=== PATIENT | male | born 1955 | race Caucasian/White ===

== ENCOUNTER 2017-08-05 13:31 | Inpatient (IN) | payer BC ==
[~2017-08-05] VITALS: Ht 182.9 cm; Wt 83.9 kg
[2017-08-05] VITALS (8 sets, daily range): BP systolic 91–137; BP diastolic 54–67
--- NOTE | 2017-08-05 13:45 | NUR ---
UNABLE TO DO EKG AT THIS TIME- PT RESTELESS. AWARE.
[2017-08-05] MEDS ORDERED: ONDANSETRON HCL/PF 4 MG/2 ML VIAL ONE (13:48)
[2017-08-05] MEDS ORDERED: HYDROMORPHONE INJ 2 MG/ML DISP.SYRIN ONE (13:49)
[2017-08-05] MEDS ORDERED: ALBUTEROL FS 2.5 MG/3 ML VIAL.NEB ONE (13:52)
[2017-08-05] MEDS ORDERED: IPRATROPIUM NEB FS 0.5 MG/2.5 ML AMPUL.NEB ONE (13:52)
--- NOTE | 2017-08-05 13:52 | NUR ---
CALLED RT FOR BREATHING TX.
[2017-08-05 13:54] LABS: BASOPHILS % (AUTO) 0.1 % (0.0-2.0); HEMATOCRIT 43 % (39-51); HEMOGLOBIN 14.3 g/dL (13.5-17.5); LYMPHOCYTES # (AUTO) 0.9 /CMM (0.8-4.8); LYMPHOCYTES % (AUTO) 3.6 % (20.0-44.0); MEAN CORPUSCULAR HGB CONC 33 g/dl (31.0-36.0); MEAN CORPUSCULAR VOLUME 85 fL (80-96); MONOCYTES # (AUTO) 0.6 /CMM (0.1-1.30); MONOCYTES % (AUTO) 2.6 % (2.0-12.0); NEUTROPHILS # (AUTO) 23.1 /CMM (1.8-8.9); NEUTROPHILS % (AUTO) 93.7 % (43.0-81.0); PLATELET COUNT (AUTO) 381 /CMM (150-450); RDW COEFFICIENT OF VARIATION 16.3 (11.5-15.0); WHITE BLOOD COUNT (AUTO) 24.6 K/uL (4.3-11.0)
[2017-08-05] MEDS ORDERED: HYDROMORPHONE INJ 0.5 MG/0.5 ML SYRINGE IV ONE (14:00)
[2017-08-05] MEDS ORDERED: IPRATROPIUM NEB FS 0.5 MG/2.5 ML AMPUL.NEB NEB ONE (14:00)
[2017-08-05] MEDS ORDERED: ALBUTEROL FS 2.5 MG/3 ML VIAL.NEB NEB ONE (14:00)
[2017-08-05] MEDS ORDERED: ONDANSETRON HCL/PF 4 MG/2 ML VIAL IV ONE (14:00)
[2017-08-05 14:13] LABS: CARBON DIOXIDE 32 mmol/L (21-32); CHLORIDE 96 mmol/L (98-107); CREATININE 0.8 mg/dL (0.6-1.3); GLUCOSE 127 mg/dL (74-106); POTASSIUM 5.3 mmol/L (3.5-5.1); SODIUM SERUM 133 mmol/L (136-145); UREA NITROGEN, BLOOD 23 mg/dL (7-18)
[2017-08-05 14:18] LABS: ALANINE AMINOTRANSFERASE 35 U/L (12-78); ALBUMIN 3.5 g/dL (3.4-5.0); ALKALINE PHOSPHATASE 113 U/L (46-116); ASPARTATE AMINOTRANSFERASE 24 U/L (15-37); BILIRUBIN,DIRECT 0.1 mg/dL (0.0-0.2); BILIRUBIN,TOTAL 0.3 mg/dL (0.2-1.0); TOTAL PROTEIN, SERUM 8.4 g/dL (6.4-8.2)
[2017-08-05 14:20] LABS: TROPONIN I < 0.017 ng/mL (0.00-0.056)
[2017-08-05] MEDS ORDERED: IV NS 0.9% 1,000 ML BAG IV ONE (14:30)
[2017-08-05] MEDS ORDERED: VANCOMYCIN 1 GM in IV D5W 250 ML IV ONE (14:30)
[2017-08-05] MEDS ORDERED: PIPERACILLIN /TAZOBACTAM 3.375 G in IV D5W 50 ML IV ONE (14:30)
[2017-08-05 14:46] LABS: LYMPHOCYTES % (MANUAL) 3 % (16-48); MONOCYTES % (MANUAL) 3 % (0-11.0); NEUTROPHILS % (MANUAL) 94 (42-76)
[2017-08-05] MEDS ORDERED: CHOL50004 GT (15:16)
[2017-08-05] MEDS ORDERED: PANT40TA2 GT (15:16)
[2017-08-05] MEDS ORDERED: METO25TA6 GT (15:16)
[2017-08-05] MEDS ORDERED: TRAZ-182 GT (15:16)
[2017-08-05] MEDS ORDERED: EMPA25TA GT (15:16)
[2017-08-05] MEDS ORDERED: INSU100I30 SQ (15:16)
[2017-08-05] MEDS ORDERED: ASCO-340 GT (15:16)
[2017-08-05] MEDS ORDERED: BACL20TA GT (15:16)
[2017-08-05] MEDS ORDERED: PREG150C GT (15:16)
[2017-08-05] MEDS ORDERED: MELA5TAB GT (15:16)
[2017-08-05] MEDS ORDERED: LACT1CAP57 GT (15:16)
[2017-08-05] MEDS ORDERED: METF-442 GT (15:16)
[2017-08-05] MEDS ORDERED: DULO60CA45 GT (15:16)
[2017-08-05 15:20] LABS: APPEARANCE,URINE Cloudy (CLEAR); BILIRUBIN,URINE Negative (NEGATIVE); BLOOD, URINE Moderate Ery/uL (NEGATIVE); COLOR,URINE Yellow (YELLOW); KETONES,URINE 15 (NEGATIVE); LEUKOCYTE ESTERASE ,URINE Small (NEGATIVE); NITRITE, URINE Positive (NEGATIVE); PH,URINE 5.5 (5.0-8.0); PROTEIN,URINE 100 mg/dl (NEGATIVE); UGLUCOSE Negative (NEGATIVE); UROBILINOGEN,URINE 0.2 EU/dL (0.2)
--- NOTE | 2017-08-05 15:23 | NUR ---
URINE COLLECTED FROM RENNER CATHETER AND SENT TO LAB
[2017-08-05] MEDS ORDERED: PIPERACILLIN /TAZOBACTAM 3.375 G VIAL IV ONE (15:40)
--- NOTE | 2017-08-05 15:44 | NUR ---
PAGED EPIC FOR PANEL
--- NOTE | 2017-08-05 15:47 | NUR ---
CALLED NURSE SUP FOR ICU BED
--- NOTE | 2017-08-05 15:57 | NUR ---
REPORT GIVEN TO PARIS ANDREWS FOR ICU 256.
--- NOTE | 2017-08-05 16:00 | NUR ---
LINECASTING MACHINE KEYBOARD OPERATOR RECEIVED PATIENT FROM ER 0N 3 LITERS NASAL CANNULA SATURATING 96% ALRET ORIENTED X 3 PARAPLEGIC NORMAL SINUS RHYTHM BLOOD PRESSURE AROUNd 100 SBP MONITORED CLOSELY YOGESHI GIBSON IN PLACED
[2017-08-05 16:12] LABS: BACTERIA,URINE Moderate /HPF (None Seen); SQUAMOUS EPITHELIAL CELL,UR Rare /HPF (None Seen); WBC,URINE 21-50 /HPF (0-3)
[2017-08-05] MEDS ORDERED: HYDROMORPHONE 1 MG/1 ML DISP.SYRIN IV PRN (18:00)
[2017-08-05] MEDS ORDERED: HYDROCODONE/APAP 5/325MG 1 EACH TABLET PO PRN ×2 (18:00→19:00)
[2017-08-05] MEDS: IV NS 0.9% 1,000 ML IV PRN (18:53)
[2017-08-05] MEDS ORDERED: FEE PK DOSING 1 MIN EA MC ONE (18:53)
[2017-08-05] MEDS ORDERED: MAG HYDROX/AL HYDROX/SIMETH 30 ML UDC PO PRN (19:00)
[2017-08-05] MEDS ORDERED: ALBUTEROL FS 2.5 MG/0.5 ML VIAL.NEB NEB PRN (19:00)
[2017-08-05] MEDS ORDERED: ACETAMINOPHEN 325 MG TABLET PO PRN (19:00)
[2017-08-05] MEDS ORDERED: IPRATROPIUM NEB FS 0.5 MG/2.5 ML AMPUL.NEB NEB PRN (19:00)
[2017-08-05] MEDS ORDERED: Z GUARD REMEDY 2 OZ OINT TP PRN (19:00)
[2017-08-05] MEDS ORDERED: Medication Not On Formulary EA (Melatonin 5 MG) PO SCH (19:00)
[2017-08-05] MEDS ORDERED: MAGNESIUM HYDROXIDE 30 ML UDC PO PRN (19:00)
[2017-08-05] MEDS ORDERED: ONDANSETRON HCL/PF 4 MG/2 ML VIAL IVP PRN (19:00)
[2017-08-05] MEDS: BACLOFEN (10 MG) 10 MG TABLET PO SCH (20:53)
[2017-08-05] MEDS: ENOXAPARIN SODIUM 40 MG/0.4 ML DISP.SYRIN SQ SCH (20:54)
[2017-08-05] MEDS ORDERED: PREGABALIN 25 MG CAPSULE PO SCH (21:00)
[2017-08-05] MEDS: TRAZODONE 50 MG TABLET PO SCH (21:14)
[2017-08-05] MEDS: PIPERACILLIN /TAZOBACTAM 3.375 G in IV D5W 50 ML IV SCH (23:36)
[2017-08-06] VITALS (18 sets, daily range): BP systolic 62–138; BP diastolic 24–74
[2017-08-06] MEDS: VANCOMYCIN 1 GM in IV NS 0.9% 250 ML IV SCH ×2 (03:35→15:16)
[2017-08-06 05:25] LABS: BASOPHILS % (AUTO) 0.3 % (0.0-2.0); EOSINOPHILS % (AUTO) 0.3 % (0.0-6.0); HEMATOCRIT 36 % (39-51); LYMPHOCYTES % (AUTO) 16.8 % (20.0-44.0); MEAN CORPUSCULAR HGB CONC 33 g/dl (31.0-36.0); MEAN CORPUSCULAR VOLUME 86 fL (80-96); MONOCYTES # (AUTO) 0.5 /CMM (0.1-1.30); MONOCYTES % (AUTO) 4.4 % (2.0-12.0); NEUTROPHILS # (AUTO) 9.4 /CMM (1.8-8.9); NEUTROPHILS % (AUTO) 78.2 % (43.0-81.0); PLATELET COUNT (AUTO) 219 /CMM (150-450); RDW COEFFICIENT OF VARIATION 16.3 (11.5-15.0); RED BLOOD CELL COUNT(AUTO) 4.22 MIL/uL (4.5-6.0)
[2017-08-06] MEDS: HYDROCODONE/APAP 10/325MG 1 EA TABLET PO PRN ×4 (05:37→22:43)
[2017-08-06 05:43] LABS: CALCIUM, SERUM 8.9 mg/dL (8.5-10.1); CREATININE 0.9 mg/dL (0.6-1.3); MAGNESIUM 1.7 mg/dL (1.8-2.4); PHOSPHORUS 3.8 mg/dL (2.5-4.9); POTASSIUM 4.8 mmol/L (3.5-5.1)
[2017-08-06] MEDS: PIPERACILLIN /TAZOBACTAM 3.375 G in IV D5W 50 ML IV SCH ×4 (05:43→23:45)
--- NOTE | 2017-08-06 06:23 | NUR ---
RN NOTE PT REMAINS IN NO ACUTE DISTRESS IN BED. PT WAS C/O PAIN TO COCCYX AND PAIN MANAGEMENT INITIATED. PT TOLERATED NC @ 2LPM WITH O2 SAT @ 100%. ALL NEEDS MET, ALL ORDERS CARRIED OUT. WILL ENDORSE CARE TO AM RN FOR CONTINUITY OF CARE.
[2017-08-06] MEDS ORDERED: PANTOPRAZOLE 40 MG TABLET.DR PO SCH (07:30)
--- NOTE | 2017-08-06 07:30 | NUR ---
ALIGNER TYPEWRITER RECEIVED PATIENT AWAKE ON 3 LITERS NASAL CANNULA SATURATING 98% AFEBRILE ALERT ORIENTED X 3, PARAPLEGIC MAINTAINED ON NPO MONITORED CLOSELY RENNER CATHETER DRAINAGE TO YELLOWISH CLOUDY URINE ADEQUATE IN AMOUNT
[2017-08-06] MEDS: IV NS 0.9% 1,000 ML IV PRN ×2 (07:51→20:20)
[2017-08-06] MEDS: BACLOFEN (10 MG) 10 MG TABLET PO SCH ×3 (08:21→16:29)
[2017-08-06] MEDS: PANTOPRAZOLE 40 MG VIAL IV SCH (08:21)
[2017-08-06] MEDS: LACTOBACILLUS RHAMNOSUS GG 1 EACH CAP.SPRINK PO SCH ×2 (08:21→16:29)
[2017-08-06] MEDS: CHOLECALCIFEROL 1,000 UNIT TABLET (VIT D3) PO SCH (08:22)
[2017-08-06] MEDS: METOPROLOL TARTRATE 25 MG TABLET PO SCH ×2 (08:22→16:30)
[2017-08-06] MEDS: ASCORBIC ACID 500 MG TABLET PO SCH (08:22)
[2017-08-06] MEDS: DULOXETINE HCL 30 MG CAPSULE.DR PO SCH (08:22)
--- NOTE | 2017-08-06 08:49 | NUR ---
WOUND CARE CONSULT: PT PRESENTS WITH MULTIPLE SKIN ISSUES INCLUDING SACRAL UNSTAGEABLE ULCER, RASH TO BUTTOCKS AND UNDER LEFT ARM, RT ANKLE ULCER AND DRY ESCHARS TO LEFT TOES, PRESENT ON ADMISSION. PT ON FIRST STEP MATTRESS. G TUBE NOTED TO BE CLAMPED AT THIS TIME. CURRENT LILY SCORE IS 8. ALL SKIN PROTECTION AND WOUND CARE RECOMMENDATIONS DISCUSSED WITH NURSING STAFF. RECOMMEND SURGICAL CONSULT. WILL SEE PRN. DUARTE IN AGREEMENT WITH PLAN OF CARE. Addendum: 08/06/17 at 0851 by JUSTINE CHILDERS WNDNU Amended: Links added.
[2017-08-06] MEDS ORDERED: HYDROGEL DRESSING 90 GM TUBE TP PRN (09:00)
[2017-08-06] MEDS: Magnesium 1GM/D5W 100ML PREMIX 100 ML IV SCH ×2 (10:09→11:15)
[2017-08-06] MEDS: CLOTRIMAZOLE/BETAMETASONE DIPROPIONATE 15 GM TUBE TP SCH ×2 (10:10→17:23)
--- NOTE | 2017-08-06 10:50 | NUR ---
PHOTOENGRAVING MACHINE OPERATOR/TENDER SEEN BY NIMCO, BULK SEALER ABLE TO CONTACT BROTHER TO FOLLOW UP WITH THE PATIENT'S STATUS AT HOME
--- NOTE | 2017-08-06 10:52 | NUR ---
Social service consult requested by Wound RN Adeline for unstageable wounds that pt. has. Pt. is a 62 year old male who was admitted to [facility] ICU for sepsis and Hypotension. KYMBERLY contacted pt's brother Jose Grider to inquire about pt's living situation. Per Jose, pt. was discharged form [facility] in [place] 10 days ago. Pt. was discharge home from the facility. Pt. currently has a 24/hr caregiver and a home health agency. Pt. is bedridden. Pt. does have a wheelchair at home. Per Jose, pt. has restless leg syndrome. Jose informed SW he will be visiting his brother in an hour at [facility]. KYMBERLY informed Jose to speak with major case detective regarding discharge plan and possible placement.
--- NOTE | 2017-08-06 13:50 | NUR ---
FIELD SALES EXECUTIVE NOTE RECEIVED REPORT FROM [facility] ICU. AWAITING PT ARRIVAL.
--- NOTE | 2017-08-06 14:06 | NUR ---
CARPET WEAVER MONITORED CLOSELY GIVEN REPORT TO GIANFRANCO RN WILL BE WHEELING PATIENT TO 1ST FLOOR ENDORSED
[2017-08-06] MEDS: HYDROGEL DRESSING 90 GM TUBE TP SCH (15:16)
[2017-08-06] MEDS: TRAZODONE 50 MG TABLET PO SCH (21:03)
[2017-08-06] MEDS: ENOXAPARIN SODIUM 40 MG/0.4 ML DISP.SYRIN SQ SCH (21:08)
[2017-08-06] MEDS: ZOLPIDEM TARTRATE 5 MG TABLET PO PRN (22:43)
--- NOTE | 2017-08-06 23:14 | NUR ---
NEEDLE PUNCH MACHINE OPERATOR HELPER NOTES GAVE PATIENT AND REPORT TO JULIANA FUNG
[2017-08-07] VITALS: BP 98/64
[2017-08-07] MEDS: VANCOMYCIN 1 GM in IV NS 0.9% 250 ML IV SCH ×2 (03:00→15:14)
--- NOTE | 2017-08-07 03:08 | NUR ---
GASOLINE ENGINE INSPECTOR NOTES RECEIVED VANCO TROUGH RESULT OF 17, VANCOMYCIN 1G ADMINISTERED ORDERED. PT IN BED RESTING COMFORTABLY, NO S/SX OF PAIN OR DISCOMFORT NOTED. WILL CONTINUE TO MONITOR ACCORDINGLY.
[2017-08-07 04:00] VITALS: BP 114/66
[2017-08-07] MEDS: PIPERACILLIN /TAZOBACTAM 3.375 G in IV D5W 50 ML IV SCH ×3 (06:01→17:01)
[2017-08-07] MEDS: IV NS 0.9% 1,000 ML IV PRN (06:10)
[2017-08-07] MEDS: HYDROCODONE/APAP 10/325MG 1 EA TABLET PO PRN ×3 (06:19→16:59)
[2017-08-07 07:09] VITALS: BP 114/66
--- NOTE | 2017-08-07 07:09 | NUR ---
CASING CREW PUSHER CLOSING NOTES PT IN BED AWAKE, ALERT, VERBALLY RESPONSIVE, ON O2 VIS N/C AT 2L/MIN. NO SOB NOTED. CALL LIGHT WITHIN REACH KEPT CLEAN AND COMFORTABLE, ATTENDED ALL NEEDS. WILL ENDORSE TO DAY SHIFT FOR CONTINUITY OF CARE
[2017-08-07 07:32] LABS: CREATININE 0.8 mg/dL (0.6-1.3); MAGNESIUM 2.1 mg/dL (1.8-2.4); PHOSPHORUS 3.8 mg/dL (2.5-4.9); POTASSIUM 4.7 mmol/L (3.5-5.1)
[2017-08-07 07:34] LABS: BASOPHILS % (AUTO) 0.4 % (0.0-2.0); EOSINOPHILS % (AUTO) 0.5 % (0.0-6.0); HEMATOCRIT 39 % (39-51); HEMOGLOBIN 12.8 g/dL (13.5-17.5); LYMPHOCYTES # (AUTO) 1.7 /CMM (0.8-4.8); LYMPHOCYTES % (AUTO) 13.8 % (20.0-44.0); MEAN CORPUSCULAR HGB CONC 33 g/dl (31.0-36.0); MEAN CORPUSCULAR VOLUME 86 fL (80-96); MONOCYTES # (AUTO) 0.7 /CMM (0.1-1.30); MONOCYTES % (AUTO) 5.7 % (2.0-12.0); NEUTROPHILS # (AUTO) 9.7 /CMM (1.8-8.9); NEUTROPHILS % (AUTO) 79.6 % (43.0-81.0); PLATELET COUNT (AUTO) 260 /CMM (150-450); RDW COEFFICIENT OF VARIATION 15.3 (11.5-15.0); RED BLOOD CELL COUNT(AUTO) 4.56 MIL/uL (4.5-6.0); WHITE BLOOD COUNT (AUTO) 12.2 K/uL (4.3-11.0)
[2017-08-07 08:00] VITALS: BP 136/71
[2017-08-07] MEDS: PANTOPRAZOLE 40 MG VIAL IV SCH (08:42)
[2017-08-07] MEDS: ASCORBIC ACID 500 MG TABLET PO SCH (08:42)
[2017-08-07] MEDS: DULOXETINE HCL 30 MG CAPSULE.DR PO SCH (08:42)
[2017-08-07] MEDS: CHOLECALCIFEROL 1,000 UNIT TABLET (VIT D3) PO SCH (08:43)
[2017-08-07] MEDS: LACTOBACILLUS RHAMNOSUS GG 1 EACH CAP.SPRINK PO SCH ×2 (08:43→16:59)
[2017-08-07] MEDS: BACLOFEN (10 MG) 10 MG TABLET PO SCH ×3 (08:43→16:59)
[2017-08-07] MEDS: METOPROLOL TARTRATE 25 MG TABLET PO SCH ×2 (08:43→17:00)
[2017-08-07] MEDS: HYDROGEL DRESSING 90 GM TUBE TP SCH (08:44)
[2017-08-07] MEDS: CLOTRIMAZOLE/BETAMETASONE DIPROPIONATE 15 GM TUBE TP SCH ×2 (08:44→17:00)
--- NOTE | 2017-08-07 11:10 | NUR ---
SPACE AND STORAGE CLERK NOTE DR.M ZHANG @ BEDSIDE ORDERED TO START TUBE FEEDING AND CHANGE ORDER OF NORCO 10/325MG PO TO 4H PRN. PT C/O OF A LOT OF PAIN 02/05.
[2017-08-07] MEDS: GLYTROL 1,000 ML BAG GT PRN (13:31)
[2017-08-07 16:00] VITALS: BP 126/66
[2017-08-07] MEDS: PROSOURCE / PROSTAT (PYXIS) 30 ML UDC GT SCH (16:59)
[2017-08-07 20:00] VITALS: BP_SYST 113; BP_SYST 128; BP_DIAS 63; BP_DIAS 65
[2017-08-07] MEDS: ENOXAPARIN SODIUM 40 MG/0.4 ML DISP.SYRIN SQ SCH (20:54)
[2017-08-07] MEDS: TRAZODONE 50 MG TABLET PO SCH (21:04)
[2017-08-07] MEDS: ZOLPIDEM TARTRATE 5 MG TABLET PO PRN (21:04)
[2017-08-08] MEDS: PIPERACILLIN /TAZOBACTAM 3.375 G in IV D5W 50 ML IV SCH ×3 (00:27→11:25)
[2017-08-08] MEDS: VANCOMYCIN 1 GM in IV NS 0.9% 250 ML IV SCH ×2 (03:16→15:00)
[2017-08-08 04:00] VITALS: BP 138/69
[2017-08-08] MEDS: GLYTROL 1,000 ML BAG GT PRN ×2 (06:26→18:11)
--- NOTE | 2017-08-08 06:55 | NUR ---
MS RN NOTES AWAKE & RESPONSIVE. NOT IN ANY DISTRESS. NO SOB NOTED. DENIES ANY PAIN OR DISCOMFORT AT THIS TIME. WITH GTF & IVF INFUSING WELL. AM CARE DONE. MONITORED ACCORDINGLY. CALL LIGHT WITHIN REACH. BED IN LOWEST POSITION. SR UP X 3 WITH BED ALARM ON FOR SAFETY. WILL ENDORSE TO NEXT SHIFT.
[2017-08-08 08:00] VITALS: BP 137/71
--- NOTE | 2017-08-08 08:00 | NUR ---
M/S RN - Assessment Received care of pt in bed, awake, A/O x 2, confused and disoriented at times, reality orientation given. Patient denies pain, no evidence of resp distress noted. Saline lock on the RAC and LFA are both patent, intact, with no complications. Skin assessment done. Will do wound treatment as ordered. Patient turned and repositioned q2h and PRN if condition permits. KCI mattress in place for skin management. GTF Glytrol at 50 ml/hr tolerated well with no residual noted. Aspiration precautions observed at all times. Isolation precautions maintained for MRSA wound. All needs attended and met. Brother Jose at bedside updated on treatment plan. Will continue with current medical management. Addendum: 08/08/17 at 1110 by RICHAR BECERRIL RN Correction/typo error on GTF rate: Patient currently on 80 ml/hr.
[2017-08-08] MEDS: PANTOPRAZOLE 40 MG VIAL IV SCH (08:29)
[2017-08-08] MEDS: LACTOBACILLUS RHAMNOSUS GG 1 EACH CAP.SPRINK PO SCH ×2 (08:30→16:28)
[2017-08-08] MEDS: ASCORBIC ACID 500 MG TABLET PO SCH (08:30)
[2017-08-08] MEDS: BACLOFEN (10 MG) 10 MG TABLET PO SCH ×3 (08:30→16:28)
[2017-08-08] MEDS: CHOLECALCIFEROL 1,000 UNIT TABLET (VIT D3) PO SCH (08:30)
[2017-08-08] MEDS: DULOXETINE HCL 30 MG CAPSULE.DR PO SCH (08:30)
[2017-08-08] MEDS: METOPROLOL TARTRATE 25 MG TABLET PO SCH ×2 (08:31→16:28)
[2017-08-08] MEDS: PROSOURCE / PROSTAT (PYXIS) 30 ML UDC GT SCH ×2 (08:31→16:29)
[2017-08-08] MEDS: HYDROGEL DRESSING 90 GM TUBE TP SCH (08:32)
[2017-08-08] MEDS: CLOTRIMAZOLE/BETAMETASONE DIPROPIONATE 15 GM TUBE TP SCH ×2 (08:32→16:28)
[2017-08-08] MEDS: HYDROCODONE/APAP 10/325MG 1 EA TABLET PO PRN ×3 (08:53→21:02)
[2017-08-08 16:00] VITALS: BP 153/77
[2017-08-08] MEDS: LEVOFLOXACIN (500MG) 500 MG TABLET PO SCH (16:28)
--- NOTE | 2017-08-08 17:20 | NUR ---
M/S RN - Notes Patient awake, afebrile, remain confused and disoriented, screaming, with episodes of sudden anger and mood swings, frequent orientation provided. Tube feeding tolerated well. Continue Vanco IV for infected wound and initiated on oral Levaquin for UTI until 08/19/17 per ID. All needs attended and met. Referred to SNF for wound care and rehabilitation. Will continue with current plan of care.
[2017-08-08 18:25] LABS: CALCIUM, SERUM 8.9 mg/dL (8.5-10.1); CREATININE 0.7 mg/dL (0.6-1.3); POTASSIUM 3.9 mmol/L (3.5-5.1)
--- NOTE | 2017-08-08 19:30 | NUR ---
RN/MS NOTES: RECEIVED PT. IN BED W/ HOB ELEVATED. DENIES ANY C/O CHEST PAIN OR SOB AT PRESENT. A/O X 2 W/ PERIODS OF CONFUSION/DISORIENTATION. HAS GT IN PLACE AND PATENT W/ NO RESIDUAL NOTED. HAD GLYTROL @ 80CC/HR. HAS RAC G 22/LFA G 20 SL PATENT AND INTACT W/ NO S/S OF INFECTION/INFILTRATION NOTED. HAS F/C INPLACE PATENT AND INTACT DRAINING VIA GRAVITY. CALL LIGHT W/ REACH. WILL CONTINUE TO MONITOR.
[2017-08-08 19:32] LABS: BASOPHILS % (AUTO) 0.3 % (0.0-2.0); EOSINOPHILS % (AUTO) 0.4 % (0.0-6.0); HEMATOCRIT 33 % (39-51); HEMOGLOBIN 10.9 g/dL (13.5-17.5); LYMPHOCYTES # (AUTO) 1.1 /CMM (0.8-4.8); LYMPHOCYTES % (AUTO) 16.3 % (20.0-44.0); MEAN CORPUSCULAR HGB CONC 34 g/dl (31.0-36.0); MEAN CORPUSCULAR VOLUME 84 fL (80-96); MONOCYTES # (AUTO) 0.7 /CMM (0.1-1.30); MONOCYTES % (AUTO) 9.7 % (2.0-12.0); NEUTROPHILS # (AUTO) 5.1 /CMM (1.8-8.9); NEUTROPHILS % (AUTO) 73.3 % (43.0-81.0); PLATELET COUNT (AUTO) 307 /CMM (150-450); RDW COEFFICIENT OF VARIATION 15.9 (11.5-15.0)
[2017-08-08 20:00] VITALS: BP 149/86
[2017-08-08] MEDS: TRAZODONE 50 MG TABLET PO SCH (21:02)
[2017-08-08] MEDS: ENOXAPARIN SODIUM 40 MG/0.4 ML DISP.SYRIN SQ SCH (21:03)
[2017-08-09] VITALS (7 sets, daily range): BP systolic 140–175; BP diastolic 76–84
[2017-08-09] MEDS: VANCOMYCIN 1 GM in IV NS 0.9% 250 ML IV SCH (03:10)
[2017-08-09] MEDS: HYDROCODONE/APAP 10/325MG 1 EA TABLET PO PRN ×5 (03:51→21:10)
[2017-08-09 06:38] LABS: CREATININE 0.7 mg/dL (0.6-1.3); POTASSIUM 4.2 mmol/L (3.5-5.1)
[2017-08-09 06:42] LABS: BASOPHILS % (AUTO) 0.2 % (0.0-2.0); EOSINOPHILS % (AUTO) 0.6 % (0.0-6.0); HEMATOCRIT 36 % (39-51); HEMOGLOBIN 11.8 g/dL (13.5-17.5); LYMPHOCYTES # (AUTO) 1.3 /CMM (0.8-4.8); LYMPHOCYTES % (AUTO) 16.1 % (20.0-44.0); MEAN CORPUSCULAR HGB CONC 33 g/dl (31.0-36.0); MEAN CORPUSCULAR VOLUME 85 fL (80-96); MONOCYTES # (AUTO) 0.8 /CMM (0.1-1.30); MONOCYTES % (AUTO) 9.4 % (2.0-12.0); NEUTROPHILS # (AUTO) 6.1 /CMM (1.8-8.9); NEUTROPHILS % (AUTO) 73.7 % (43.0-81.0); PLATELET COUNT (AUTO) 271 /CMM (150-450); RDW COEFFICIENT OF VARIATION 16.2 (11.5-15.0); RED BLOOD CELL COUNT(AUTO) 4.19 MIL/uL (4.5-6.0); WHITE BLOOD COUNT (AUTO) 8.3 K/uL (4.3-11.0)
[2017-08-09] MEDS: GLYTROL 1,000 ML BAG GT PRN (06:46)
--- NOTE | 2017-08-09 07:19 | NUR ---
RN/MS NOTES: NO ACUTE CHANGES NOTED DURING THIS SHIFT. REPORT GIVEN TO AM NURSE FOR ARIADNE.
--- NOTE | 2017-08-09 07:40 | NUR ---
RN OPENING NOTES RECEIVED PT. PT IS STABLE AND RESTING IN BED. NO S/S OF RESP DISTRESS OR SOB. PT REFUSES TO WEAR NC, HOWEVER O2 SAT WNL. FC PATENT AND IN PLACE. IV [id number] LOCATED ON RIGHT AC 22G, AND LFA 20G BOTH INFUSING NS AT KVO. GT FEEDING OF GLYTROL RUNNING AT 80 CC/HR. SAFETY MEASURES IN PLACE, CALL LIGHT WITHIN REACH. WILL CONTINUE TO MONITOR.
[2017-08-09] MEDS: PANTOPRAZOLE 40 MG VIAL IV SCH (08:52)
[2017-08-09] MEDS: METOPROLOL TARTRATE 25 MG TABLET PO SCH ×2 (08:53→17:34)
[2017-08-09] MEDS: LACTOBACILLUS RHAMNOSUS GG 1 EACH CAP.SPRINK PO SCH ×2 (08:54→17:00)
[2017-08-09] MEDS: DULOXETINE HCL 30 MG CAPSULE.DR PO SCH (08:54)
[2017-08-09] MEDS: PROSOURCE / PROSTAT (PYXIS) 30 ML UDC GT SCH ×2 (08:55→17:34)
[2017-08-09] MEDS: ASCORBIC ACID 500 MG TABLET PO SCH (08:55)
[2017-08-09] MEDS: BACLOFEN (10 MG) 10 MG TABLET PO SCH ×3 (08:55→17:33)
[2017-08-09] MEDS: CHOLECALCIFEROL 1,000 UNIT TABLET (VIT D3) PO SCH (08:55)
[2017-08-09] MEDS: HYDROGEL DRESSING 90 GM TUBE TP SCH (08:56)
[2017-08-09] MEDS: CLOTRIMAZOLE/BETAMETASONE DIPROPIONATE 15 GM TUBE TP SCH ×2 (08:56→17:34)
[2017-08-09] MEDS ORDERED: RXVAN XX (12:13)
[2017-08-09] MEDS ORDERED: VANC750F2 IV (12:14)
[2017-08-09] MEDS ORDERED: [UNRECOGNIZED DRUG - OTHER] GT (12:14)
[2017-08-09] MEDS ORDERED: LEVO500T2 PO (12:14)
[2017-08-09] MEDS ORDERED: VANCOMYCIN 0.75 GM in IV D5W 250 ML IV SCH (15:00)
[2017-08-09] MEDS: LEVOFLOXACIN (500MG) 500 MG TABLET PO SCH (15:21)
--- NOTE | 2017-08-09 18:48 | NUR ---
RESCHEDULED AMBULANCE R/T SUBACUTE CANNOT TAKE PT W/SBP ABOVE 150 ,PRN PAIN MEDS GIVEN,WILL CALL AMBULANCE.
--- NOTE | 2017-08-09 19:21 | NUR ---
RN CLOSING NOTES PT IN BED RESTING. NO S/S OF RESP DISTRESS. PT CONTINUES TO REFUSE TO WEAR NC, HOWEVER O2 SAT WNL. NO C/O PAIN AT THIS TIME. PT DENIED INITIAL D/C ATTEMPT TO [facility] DUE TO ELEVATED BP OF 162/92. SCHED BP MED GIVEN. CONTACTED FOR PRN ORDERS. [facility] WILL ACCEPT ONCE SYSTOLIC BP IS BELOW 150. MANAGER OF WAREHOUSE TRIP NUMBER GIVEN TO CIVIL ENGINEER IN TRAINING RN. SAFETY MEASURES IN PLACE, CALL LIGHT WITHIN REACH. ENDORSED TO CIVIL ENGINEER IN TRAINING FOR ARIADNE.
--- NOTE | 2017-08-09 19:30 | NUR ---
RN/MS NOTES: RECEIVED PT. IN BED W/ HOB ELEVATED. DENIES ANY C/O CHEST PAIN OR SOB AT PRESENT. A/O X 2 W/ PERIODS OF CONFUSION/DISORIENTATION. HAS GT IN PLACE AND PATENT W/ NO RESIDUAL NOTED. HAS GLYTROL @ 80CC/HR. HAS RAC G 22/LFA G 20 SL PATENT AND INTACT W/ NO S/S OF INFECTION/INFILTRATION NOTED. HAS F/C INPLACE PATENT AND INTACT DRAINING VIA GRAVITY. CALL LIGHT W/ REACH. WILL CONTINUE TO MONITOR.
--- NOTE | 2017-08-09 19:35 | NUR ---
RN/MS NOTES: DR. FARAH TEXTED BACK W/ NEW ORDERS NOTED AND CARRIED OUT. MEDS GIVEN PER ORDER. PT. IN BED RESTING. DENIES ANY C/O PAIN OR SOB.
[2017-08-09] MEDS ORDERED: CLONIDINE HCL 0.1 MG TABLET PO ONE (20:00)
[2017-08-09] MEDS ORDERED: CLONIDINE HCL 0.1 MG TABLET PO PRN (20:00)
[2017-08-09] MEDS: TRAZODONE 50 MG TABLET PO SCH (21:10)
[2017-08-09] MEDS: ENOXAPARIN SODIUM 40 MG/0.4 ML DISP.SYRIN SQ SCH (21:11)
--- NOTE | 2017-08-09 21:30 | NUR ---
RN/MS NOTES: CALLED [facility] TO UPDATE ON PT. GAVE 9PM AND 10 PM MEDS. UP DATED PT. VITALS . PT. LEFT VIA STRETCHER AT 5 IN STABLE CONDITION W/ ALL HIS BELONGINGS W/ 2 EMT TECH.
[2017-08-30] MEDS ORDERED: DOXY-182 PO (11:44)
[2017-08-30] MEDS ORDERED: AMOX-430 PO (11:44)
[2017-08-30] MEDS ORDERED: VORI200T PO (11:44)
== END 2017-08-09 21:33 | DRG 871 ==
LOC: ER 13:32 → ICU 15:58 → TELE1 08-06 14:21 → MEDSG1 08-07 08:32
PROVIDERS: ADMIT Nurse Practitioner Acute Care; ATTEND Nurse Practitioner Acute Care
DX: A41.9 Sepsis, unspecified organism (principal); R53.2 Functional quadriplegia; L89.159 Pressure ulcer of sacral region, unspecified stage; G92 Toxic encephalopathy; D68.59 Other primary thrombophilia; E87.1 Hypo-osmolality and hyponatremia; E87.5 Hyperkalemia; E86.0 Dehydration; N39.0 Urinary tract infection, site not specified; Z93.1 Gastrostomy status; F32.9 Major depressive disorder, single episode, unspecified; I10 Essential (primary) hypertension; Z79.4 Long term (current) use of insulin; Z79.84 Long term (current) use of oral hypoglycemic drugs; Z79.899 Other long term (current) drug therapy; Z98.1 Arthrodesis status; Z87.440 Personal history of urinary (tract) infections; B96.5 Pseudomonas (aeruginosa) (mallei) (pseudomallei) as the cause of diseases classified elsewhere; J06.9 Acute upper respiratory infection, unspecified; Z74.01 Bed confinement status; R13.10 Dysphagia, unspecified; N31.9 Neuromuscular dysfunction of bladder, unspecified
CPT/HCPCS: 36415; 71045-TC; 80048-TC; 80061-TC; 80076-TC; 80202-TC; 81000-TC; 83605-TC; 83735-TC; 84100-TC; 84484-TC; 85025-TC; 87040-TC; 87070-TC; 87081-TC; 87086-TC; 87186-TC; 94799-TC; A4217; A4606; A6248; C9113; J1170; J1650; J2405; J2543; J3370; J3475; J7030; J7050; J7060; Z7610

== ENCOUNTER 2017-08-18 11:17 | Inpatient (IN) | payer BC ==
[~2017-08-18] VITALS: Ht 180.3 cm; Wt 113.4 kg
[~2017-08-18 11:17] MED LIST: ASCO-340 GT; BACL20TA GT; CHOL50004 GT; DULO60CA45 GT; EMPA25TA GT; INSU100I30 SQ; LACT1CAP57 GT; LEVO500T2 PO; MELA5TAB GT; METF-442 GT; METO25TA6 GT; PANT40TA2 GT; PREG150C GT; RXVAN XX; TRAZ-182 GT; VANC750F2 IV; [UNRECOGNIZED DRUG - OTHER] GT
--- NOTE | 2017-08-18 11:20 | NUR ---
BBRA FROM HOME, CAREGIVER CALLED 911 FOR SOB X YESTERDAY, NAD NOTED, VSS, RESP EVEN AND UNLABORED, PT WAS PUT ON MONITOR, WAITING FOR MD HOUSE.
[2017-08-18] MEDS ORDERED: IV NS 0.9% 1,000 ML BAG IV ONE (11:30)
[2017-08-18] MEDS ORDERED: CEFEPIME 1 GM in IV D5W 50 ML IV ONE (11:30)
[2017-08-18 11:44] LABS: BASOPHILS % (AUTO) 0.3 % (0.0-2.0); EOSINOPHILS % (AUTO) 0.8 % (0.0-6.0); HEMATOCRIT 38 % (39-51); HEMOGLOBIN 12.4 g/dL (13.5-17.5); LYMPHOCYTES # (AUTO) 1.4 /CMM (0.8-4.8); LYMPHOCYTES % (AUTO) 15.7 % (20.0-44.0); MEAN CORPUSCULAR HGB CONC 33 g/dl (31.0-36.0); MEAN CORPUSCULAR VOLUME 83 fL (80-96); MONOCYTES # (AUTO) 0.5 /CMM (0.1-1.30); MONOCYTES % (AUTO) 5.1 % (2.0-12.0); NEUTROPHILS % (AUTO) 78.1 % (43.0-81.0); PLATELET COUNT (AUTO) 304 /CMM (150-450); RDW COEFFICIENT OF VARIATION 15.3 (11.5-15.0); RED BLOOD CELL COUNT(AUTO) 4.62 MIL/uL (4.5-6.0)
[2017-08-18 12:11] LABS: APPEARANCE,URINE Cloudy (CLEAR); BILIRUBIN,URINE Negative (NEGATIVE); BLOOD, URINE Trace-lysed Ery/uL (NEGATIVE); COLOR,URINE Yellow (YELLOW); KETONES,URINE 15 (NEGATIVE); LEUKOCYTE ESTERASE ,URINE Trace (NEGATIVE); NITRITE, URINE Negative (NEGATIVE); PROTEIN,URINE 30 mg/dl (NEGATIVE); UGLUCOSE 500 MG/DL mg/dL (NEGATIVE); UROBILINOGEN,URINE 0.2 EU/dL (0.2)
[2017-08-18 12:25] LABS: BACTERIA,URINE Many /HPF (None Seen); SQUAMOUS EPITHELIAL CELL,UR Few /HPF (None Seen); WBC,URINE TOO NUMEROUS TO COUN /HPF (0-3)
[2017-08-18 12:27] LABS: INR 0.91 (0.85-1.15)
[2017-08-18 12:39] LABS: CALCIUM, SERUM 8.9 mg/dL (8.5-10.1); CARBON DIOXIDE 34 mmol/L (21-32); CHLORIDE 100 mmol/L (98-107); CREATININE 0.7 mg/dL (0.6-1.3); GLUCOSE 239 mg/dL (74-106); POTASSIUM 4.2 mmol/L (3.5-5.1); SODIUM SERUM 138 mmol/L (136-145); UREA NITROGEN, BLOOD 29 mg/dL (7-18)
[2017-08-18 12:45] LABS: ALANINE AMINOTRANSFERASE 17 U/L (12-78); ALBUMIN 2.6 g/dL (3.4-5.0); ALKALINE PHOSPHATASE 69 U/L (46-116); ASPARTATE AMINOTRANSFERASE 17 U/L (15-37); BILIRUBIN,DIRECT 0.1 mg/dL (0.0-0.2); BILIRUBIN,TOTAL 0.1 mg/dL (0.2-1.0)
[2017-08-18 13:00] LABS: TROPONIN I < 0.017 ng/mL (0.00-0.056)
[2017-08-18] MEDS ORDERED: IOHEXOL-350 100 ML VIAL IV ONE (14:17)
[2017-08-18] MEDS ORDERED: HYDROCODONE/APAP 5/325MG 1 EACH TABLET ONE (14:51)
[2017-08-18] MEDS ORDERED: HYDROCODONE/APAP 5/325MG 1 EACH TABLET PO ONE (15:00)
--- NOTE | 2017-08-18 15:31 | NUR ---
CALLED NURSING SUP. FOR TELE BED, SAID SHE WILL CALL ME BACK
--- NOTE | 2017-08-18 17:40 | NUR ---
RN NOTES: JEVITY 1.0 TAKEN AT HOME TID PER PATIENT. FIBERSOURCE ORDERED PER DIETARY MANAGEMENT PROTOCOL
[2017-08-18] MEDS ORDERED: IV NS 0.9% 1,000 ML IV PRN (17:48)
[2017-08-18] MEDS ORDERED: HYDROCODONE/APAP 5/325MG 1 EACH TABLET PO PRN (18:00)
[2017-08-18] MEDS ORDERED: MAG HYDROX/AL HYDROX/SIMETH 30 ML UDC PO PRN (18:00)
[2017-08-18] MEDS ORDERED: FIBERSOURCE HN 1,000 ML BOTTLE GT PRN (18:00)
[2017-08-18] MEDS ORDERED: ACETAMINOPHEN 325 MG TABLET PO PRN (18:00)
[2017-08-18] MEDS ORDERED: ALBUTEROL FS 2.5 MG/3 ML VIAL.NEB NEB PRN (18:00)
[2017-08-18] MEDS ORDERED: ZOLPIDEM TARTRATE 5 MG TABLET PO PRN (18:00)
[2017-08-18] MEDS ORDERED: ENOXAPARIN SODIUM 40 MG/0.4 ML DISP.SYRIN SQ SCH (18:00)
[2017-08-18] MEDS ORDERED: MAGNESIUM HYDROXIDE 30 ML UDC PO PRN (18:00)
[2017-08-18] MEDS ORDERED: ONDANSETRON HCL/PF 4 MG/2 ML VIAL IVP PRN (18:00)
[2017-08-18] MEDS ORDERED: Z GUARD REMEDY 2 OZ OINT TP PRN (18:00)
[2017-08-18] MEDS ORDERED: INSULIN REGULAR, HUMAN 100 UNIT/ML 3 ML VIAL SQ PRN (18:30)
[2017-08-18] MEDS ORDERED: FENTANYL PF 100MCG/2ML AMPUL IV PRN (18:30)
[2017-08-18] MEDS ORDERED: DEXTROSE 50%-WATER 50 ML DISP.SYRIN IV PRN (18:30)
[2017-08-18] MEDS: HYDROCODONE/APAP 10/325MG 1 EA TABLET PO PRN (18:51)
[2017-08-18] MEDS: PANTOPRAZOLE 40 MG VIAL IV SCH (18:58)
--- NOTE | 2017-08-18 19:30 | NUR ---
RN CLOSING NOTES: PATIENT ARRIVED TO UNIT AT 1610. PATIENT AOX3-4 WITH CLEAR SPEECH. PATIENT STABLE. NONLABORED BREATHING NOTED ON ROOM AIR. NO COUGHING NOTED. PATIENT AFEBRILE. SINUS RHYTHM ON TELE MONITOR. DENYING CHEST PAIN. GTUBE INTACT AND PATENT. IV ON LEFT WRIST GAUGE 20 PATENT AND INTACT. PATIENT REFUSED SKIN ASSESSMENT WELL PICTURES STATING THAT HE "JUST WANT THEM CLEANED. CLEANED WITH NS AND COVERED WITH MEPILEX. WOUND CONSULT PLACED. VERIFIED WITH BROTHER, PATIENT RECEIVES JEVITY 1.2 BOLUS TID. DIETARY CONSULT PLACED TO VERIFY CURRENT FIBERSOURCE FEEDING. IV FLUIDS STARTED PER ORDERS. UNABLE TO OBTAIN SACRAL WOUND CULTURE. ENDORSED TO NIGHT RN. NORCO ADMINISTERED AT 1700. PATIENT STATES THAT HE DOES NOT WANT THE BACLOFEN NOW. ENDORSED TO NEXT SHIFT
--- NOTE | 2017-08-18 19:30 | NUR ---
PARTS IDENTIFICATION TECHNICIAN NOTES. ERP PROJECT MANAGER IN PLACE SINUS RHYTHM 94
--- NOTE | 2017-08-18 19:30 | NUR ---
MS TELE OPENING NOTES RECEIVED PATIENT IN BED,AWAKE,ALERT AND ORIENTED X 3 , ABLE TO MAKE NEEDS KNOWN, RESPIRATIONS EVEN AND UNLABORED, HEAD OF BED ELEVATED FOR ASPIRATION PRECAUTIONS ,GTUBE INTACT AND PATENT,RUNNING ORDERED, IV TO LEFT WRIST 20 GAUGE INTACT AND PATENT, NO REDNESS, NO INFILTRATION TO SITE, IVF RUNNING ORDERED. BODY ASSESSMENT DONE, PICTURES TAKEN PLACED, IN CHART, WOUND CULTURE COLLECTED, WOUNDS CLEANSED AND COVERED WITH MEPILEX, PATIENT REPOSITIONED FOR COMFORT, STATES "PAIN IS AT A TOLERABLE LEVEL , FEELS BETTER AFTER REPOSITIONING", RENNER CATHETER IS INTACT, FLOWING WELL, URINE YELLOW, ORIENTED TO ROOM, STAFF , SAFETY MEASURES IN PLACE WILL CONTINUE TO MONITOR.
[2017-08-18 20:00] VITALS: BP 151/86
--- NOTE | 2017-08-18 20:00 | NUR ---
BANANA RIPENING ROOM SUPERVISOR NOTES PATIENT REFUSED DVT PUMPS,MADE AWARE OF RISK AND BENEFIT PURPOSE OF DVT PUMP, STATED " I DONT NEED THOSE".
--- NOTE | 2017-08-18 20:00 | NUR ---
CLOTH EDGE SINGER NOTES MADE PATIENT AWARE OF IMPORTANCE RISK AND BENEFITS REGARDING PRESSURE REDUCING MATTRESS FOR WOUND AND SKIN MANAGEMENT , PATIENT REFUSED, STATING," I DONT NEED IT RIGHT NOW!, IM OKAY WITHOUT IT"
[2017-08-18] MEDS: BACLOFEN (10 MG) 10 MG TABLET GT SCH (20:17)
[2017-08-18] MEDS ORDERED: TRAZODONE 50 MG TABLET GT SCH (22:00)
[2017-08-18] MEDS: CEFEPIME 1 GM in IV NS 0.9% 50 ML IV SCH (22:44)
[2017-08-18] MEDS: BLOOD SUGAR DIAGNOSTIC 1 EACH STRIP IN SCH (22:52)
--- NOTE | 2017-08-18 22:54 | NUR ---
DIRECTOR FINANCIAL SYSTEMS NOTES BLOOD SUGAR CHECK 102 NO INSULIN COVERAGE NEEDED.
[2017-08-19] VITALS: BP 139/77
[2017-08-19] MEDS: HYDROCODONE/APAP 10/325MG 1 EA TABLET PO PRN ×2 (00:39→04:44)
[2017-08-19 04:00] VITALS: BP 133/78
--- NOTE | 2017-08-19 06:30 | NUR ---
MS TELE CLOSING NOTES PATIENT IN BED,AWAKE,ALERT AND ORIENTED X 3 , ABLE TO MAKE NEEDS KNOWN, RESPIRATIONS EVEN AND UNLABORED, HEAD OF BED ELEVATED FOR ASPIRATION PRECAUTIONS ,GTUBE INTACT AND PATENT,RUNNING ORDERED, IV TO LEFT WRIST 20 GAUGE INTACT AND PATENT, NO REDNESS, NO INFILTRATION TO SITE, IVF RUNNING ORDERED. WOUNDS DRESSING INTACT AND CLEAN PATIENT REPOSITIONED FOR COMFORT,RENNER CATHETER IS INTACT, FLOWING WELL, DENIES ANY PAIN AT THIS TIME , SAFETY MEASURES IN PLACE WILL CONTINUE TO MONITOR AND ENDORSE TO NEXT SHIFT.
[2017-08-19 07:13] LABS: CALCIUM, SERUM 8.3 mg/dL (8.5-10.1); CREATININE 0.7 mg/dL (0.6-1.3); MAGNESIUM 1.9 mg/dL (1.8-2.4); PHOSPHORUS 2.8 mg/dL (2.5-4.9); POTASSIUM 4.1 mmol/L (3.5-5.1)
--- NOTE | 2017-08-19 07:30 | NUR ---
RN OPENING NOTES RECEIVED PT. PT IS STABLE AND RESTING IN BED. NO S/S OF RESP DISTRESS OR SOB. NO C/O PAIN AT THIS TIME. PT STATES THAT HE WILL BE D/C TODAY, HOWEVER NO D/C ORDER PLACED IN EMR. WILL F/U WITH . FC IN PLACE AND PATENT. IV ACCESS LOCATED ON RIGHT WRIST 20G INFUSING NS AT 75 ML/HR. SAFETY MEASURES IN PLACE, CALL LIGHT WITHIN REACH. WILL CONTINUE TO MONITOR.
[2017-08-19 07:42] LABS: BASOPHILS # (AUTO) 0.1 /CMM (0.0-0.2); BASOPHILS % (AUTO) 0.9 % (0.0-2.0); EOSINOPHILS % (AUTO) 1.5 % (0.0-6.0); HEMATOCRIT 32 % (39-51); HEMOGLOBIN 10.7 g/dL (13.5-17.5); LYMPHOCYTES # (AUTO) 1.7 /CMM (0.8-4.8); LYMPHOCYTES % (AUTO) 28.7 % (20.0-44.0); MEAN CORPUSCULAR HGB CONC 33 g/dl (31.0-36.0); MEAN CORPUSCULAR VOLUME 84 fL (80-96); MONOCYTES # (AUTO) 0.4 /CMM (0.1-1.30); MONOCYTES % (AUTO) 7.4 % (2.0-12.0); NEUTROPHILS # (AUTO) 3.6 /CMM (1.8-8.9); NEUTROPHILS % (AUTO) 61.5 % (43.0-81.0); PLATELET COUNT (AUTO) 265 /CMM (150-450); RED BLOOD CELL COUNT(AUTO) 3.85 MIL/uL (4.5-6.0); WHITE BLOOD COUNT (AUTO) 5.9 K/uL (4.3-11.0)
[2017-08-19 08:00] VITALS: BP 162/78
--- NOTE | 2017-08-19 08:45 | NUR ---
WOUND CARE CONSULT: PT PRESENTS WITH QUADRIPLEGIA AND MULTIPLE WOUND AND SKIN ISSUES PRESENT ON ADMISSION INCLUDING LEFT EAR LESION, SACRAL ULCER, UNSTAGEABLE WITH MULTIPLE OPEN AREAS, AND LOWER EXTREMITY WOUNDS. CURRENT LILY SCORE IS 11. FIRST STEP MATTRESS ORDERED. ALL SKIN PROTECTION AND WOUND CARE RECOMMENDATIONS DISCUSSED WITH NURSING STAFF. SURGICAL CONSULT RECOMMENDED. PT STATES IS SEEING A PLASTIC SURGEON FOR HIS LEFT EAR LESION. WILL SEE PRN. DUARTE IN AGREEMENT WITH PLAN OF CARE. Addendum: 08/19/17 at 0849 by JUSTINE CHILDERS WNDNU Amended: Links added.
[2017-08-19] MEDS: PANTOPRAZOLE 40 MG VIAL IV SCH (08:51)
[2017-08-19] MEDS: BACLOFEN (10 MG) 10 MG TABLET GT SCH ×2 (08:52→13:00)
[2017-08-19] MEDS ORDERED: HYDROGEL DRESSING 90 GM TUBE TP SCH (09:00)
[2017-08-19] MEDS ORDERED: METFORMIN 500 MG TABLET GT SCH (09:00)
[2017-08-19] MEDS ORDERED: PREGABALIN 25 MG CAPSULE GT SCH (09:00)
[2017-08-19] MEDS ORDERED: VALSARTAN 80 MG TABLET PO SCH (09:00)
[2017-08-19] MEDS ORDERED: METOPROLOL TARTRATE 25 MG TABLET GT SCH (09:00)
[2017-08-19] MEDS ORDERED: Medication Not On Formulary EA (Empagliflozin (Jardiance) 25 MG) GT SCH (09:00)
[2017-08-19] MEDS ORDERED: HYDROGEL DRESSING 90 GM TUBE TP PRN (09:00)
[2017-08-19] MEDS ORDERED: DULOXETINE HCL 30 MG CAPSULE.DR GT SCH (09:00)
[2017-08-19] MEDS: BLOOD SUGAR DIAGNOSTIC 1 EACH STRIP IN SCH ×2 (09:11→11:47)
[2017-08-19 10:05] LABS: THYROID STIMULATING HORMONE 1.348 uIU/mL (0.358-3.74)
[2017-08-19 10:29] VITALS: BP 154/82
[2017-08-19] MEDS: CEFEPIME 1 GM in IV NS 0.9% 50 ML IV SCH (11:00)
--- NOTE | 2017-08-19 11:02 | NUR ---
RN NOTES PT IS INSISTING THAT HE GO HOME TODAY 08/19/17. REQUESTED DC FROM . STATES THAT PT IS NOT MEDICALLY CLEARED AND WILL NOT RECEIVE D/C, PT OPTING TO LEAVE AMA. PT HAS ARRANGED HIS OWN TRANSPORTATION SERVICES THROUGH [facility] . TRANSPORT STATES THAT THEY WILL BE READY FOR PT RIGGER HELPER AT 1330.
--- NOTE | 2017-08-19 14:09 | NUR ---
DISCHARGE NOTE PT DISCHARGED TO HOME AMA. RISKS OF D/C AGAINST MEDICAL ADVICE EXPLAINED AND IMPORTANCE OF COMPLETING ANTIBIOTIC THERAPY EXPLAINED. PT VERBALIZES UNDERSTANDING YET INSISTS ON LEAVING AMA. AMA PAPERWORK SIGNED. EXITCARE PROVIDED. PT ID BAND AND IV ACCESS REMOVED. RENNER CATHETER REMAINS IN PLACE, WITH PLANS FOR CAREGIVER TO REMOVE THE RENNER AT HOME. PT WILL CONTINUE TO WITH HOME HEALTH AGENCY. WOUND PICTURES TAKEN <24 HOURS PRIOR TO D/C. PICTURES PLACED IN CHART. PT ARRANGED HIS OWN TRANSPORTATION VIA AMBULANCE. PT LEFT HOSPITAL WITH PRIVATE AMBULANCE AND PARAMEDICS.
[2017-08-19] MEDS ORDERED: INSULIN GLARGINE, 100 UNIT/ML CARTRIDGE SQ SCH (22:00)
== END 2017-08-19 14:00 | disposition left against medical advice (07) | DRG 689 ==
LOC: ER 11:19 → TELE 16:43 → MED 08-19 11:15
PROVIDERS: ADMIT Hospitalist; ATTEND Hospitalist
DX: N39.0 Urinary tract infection, site not specified (principal); E43 Unspecified severe protein-calorie malnutrition; G82.50 Quadriplegia, unspecified; L89.150 Pressure ulcer of sacral region, unstageable; D68.59 Other primary thrombophilia; E11.65 Type 2 diabetes mellitus with hyperglycemia; E66.01 Morbid (severe) obesity due to excess calories; N31.9 Neuromuscular dysfunction of bladder, unspecified; Z93.1 Gastrostomy status; B96.5 Pseudomonas (aeruginosa) (mallei) (pseudomallei) as the cause of diseases classified elsewhere; R00.0 Tachycardia, unspecified; I10 Essential (primary) hypertension; D63.8 Anemia in other chronic diseases classified elsewhere; R47.02 Dysphasia; Z74.01 Bed confinement status; F32.9 Major depressive disorder, single episode, unspecified; Z68.34 Body mass index [BMI] 34.0-34.9, adult
CPT/HCPCS: 36415; 71045-TC; 80048-TC; 80061-TC; 80076-TC; 81000-TC; 82306; 82728-TC; 82962-TC; 83540-TC; 83605-TC; 83735-TC; 83880; 84100-TC; 84439-TC; 84443-TC; 84484-TC; 85025-TC; 85730-TC; 87040-TC; 87070-TC; 87081-TC; 87086-TC; A4216; A4606; A6248; A6402; C9113; J0692; J1650; J1815; J7030; J7060; Q9967; Z7610

== ENCOUNTER 2017-08-24 20:27 | Inpatient (IN) | payer BC ==
[~2017-08-24 20:27] MED LIST changes: -LEVO500T2 PO; -RXVAN XX; -VANC750F2 IV; -[UNRECOGNIZED DRUG - OTHER] GT
[2017-08-24] MEDS ORDERED: IPRATROPIUM/ALBUTEROL INHALER IH SCH ×2 (21:00)
[2017-08-24] MEDS ORDERED: METRONIDAZOLE 500MG/ NS 100ML 500 MG in PREMIX 1 EA IV SCH (21:00)
[2017-08-24] MEDS ORDERED: VANCOMYCIN 1 GM in IV D5W 250 ML IV ONE (21:00)
[2017-08-24] MEDS ORDERED: ONDANSETRON HCL/PF 4 MG/2 ML VIAL IVP PRN (21:30)
[2017-08-24] MEDS ORDERED: HYDROCODONE/APAP 5/325MG 1 EACH TABLET PO PRN (21:30)
[2017-08-24] MEDS ORDERED: IPRATROPIUM NEB FS 0.5 MG/2.5 ML AMPUL.NEB NEB PRN (21:30)
[2017-08-24] MEDS ORDERED: ACETAMINOPHEN 325 MG TABLET PO PRN (21:30)
[2017-08-24] MEDS ORDERED: IV NS 0.9% 1,000 ML BAG IV ONE ×2 (21:30)
[2017-08-24] MEDS ORDERED: DEXTROSE 50%-WATER 50 ML DISP.SYRIN IV PRN (21:30)
[2017-08-24] MEDS ORDERED: ALBUTEROL FS 2.5 MG/3 ML VIAL.NEB NEB PRN (21:30)
[2017-08-24] MEDS ORDERED: METRONIDAZOLE 500MG/ NS 100ML 100 ML IV ONE (21:34)
[2017-08-24] MEDS ORDERED: VANCOMYCIN 1 GM VIAL ONE (21:34)
[2017-08-24] MEDS ORDERED: PIPERACILLIN /TAZOBACTAM 3.375 G VIAL IV ONE (21:37)
[2017-08-24] MEDS ORDERED: MORPHINE SULFATE INJ 2 MG/ML DISP.SYRIN IV PRN ×2 (22:00→22:30)
[2017-08-24] MEDS ORDERED: PIPERACILLIN /TAZOBACTAM 3.375 G in IV D5W 50 ML IV ONE (22:00)
[2017-08-24] MEDS ORDERED: ACETAMINOPHEN 325 MG TABLET MC PRN (22:00)
[2017-08-24] MEDS ORDERED: MORPHINE SULFATE INJ 4 MG/ML DISP.SYRIN ONE (22:25)
[2017-08-24] MEDS: ALBUTEROL FS 2.5 MG/3 ML VIAL.NEB NEB SCH (22:35)
[2017-08-24] MEDS: IPRATROPIUM NEB FS 0.5 MG/2.5 ML AMPUL.NEB NEB SCH (22:35)
[2017-08-24] MEDS ORDERED: ALBUTEROL FS 2.5 MG/3 ML VIAL.NEB ONE (22:40)
[2017-08-24] MEDS ORDERED: IPRATROPIUM NEB FS 0.5 MG/2.5 ML AMPUL.NEB ONE (22:40)
[2017-08-24] MEDS: FLUCONAZOLE IN NS 100 MG in PREMIX 1 EA IV SCH ×2 (23:30)
[2017-08-25] MEDS ORDERED: PIPERACILLIN /TAZOBACTAM 4.5 G in IV NS 0.9% 50 ML IV SCH ×2
[2017-08-25] MEDS ORDERED: MORPHINE SULFATE INJ 4 MG/ML DISP.SYRIN IV ONE (00:30)
[2017-08-25] MEDS: TRAZODONE 50 MG TABLET GT SCH ×2 (00:42→22:03)
[2017-08-25] MEDS ORDERED: FLUCONAZOLE IN NS 100 ML IV ONE (01:03)
[2017-08-25] MEDS: ALBUTEROL FS 2.5 MG/3 ML VIAL.NEB NEB SCH ×5 (01:30→20:00)
[2017-08-25] MEDS: IPRATROPIUM NEB FS 0.5 MG/2.5 ML AMPUL.NEB NEB SCH ×5 (01:30→20:00)
[2017-08-25] MEDS: BLOOD SUGAR DIAGNOSTIC 1 EACH STRIP IN SCH ×4 (01:40→17:11)
[2017-08-25] MEDS: IV NS 0.9% 1,000 ML IV PRN (01:40)
[2017-08-25] MEDS ORDERED: MORPHINE SULFATE INJ 4 MG/ML DISP.SYRIN ONE (03:35)
[2017-08-25] MEDS: MORPHINE SULFATE INJ 4 MG/ML DISP.SYRIN IV PRN ×2 (03:52→12:04)
[2017-08-25] MEDS ORDERED: PIPERACILLIN /TAZOBACTAM 3.375 G VIAL IV ONE (05:46)
[2017-08-25] MEDS: PIPERACILLIN /TAZOBACTAM 3.375 G in IV D5W 50 ML IV SCH ×3 (05:56→18:28)
[2017-08-25] MEDS ORDERED: FEE PK DOSING 1 MIN EA MC ONE (07:45)
[2017-08-25] MEDS: CHOLECALCIFEROL 1,000 UNIT TABLET (VIT D3) GT SCH (08:25)
[2017-08-25] MEDS: DULOXETINE HCL 30 MG CAPSULE.DR GT SCH (08:27)
[2017-08-25] MEDS: BACLOFEN (10 MG) 10 MG TABLET GT SCH ×3 (08:27→17:11)
[2017-08-25] MEDS: LACTOBACILLUS RHAMNOSUS GG 1 EACH CAP.SPRINK GT SCH ×2 (08:27→17:11)
[2017-08-25] MEDS: PREGABALIN 25 MG CAPSULE GT SCH ×2 (08:27→17:18)
[2017-08-25] MEDS: ASCORBIC ACID 500 MG TABLET GT SCH (08:28)
[2017-08-25] MEDS: METFORMIN 500 MG TABLET GT SCH ×2 (08:28→17:00)
[2017-08-25] MEDS: METOPROLOL TARTRATE 25 MG TABLET GT SCH ×2 (08:28→17:00)
[2017-08-25] MEDS: PANTOPRAZOLE 40 MG TABLET.DR PO SCH (08:28)
[2017-08-25] MEDS ORDERED: Medication Not On Formulary EA (Empagliflozin (Jardiance) 25 MG) GT SCH (09:00)
[2017-08-25] MEDS: ENOXAPARIN SODIUM 40 MG/0.4 ML DISP.SYRIN SQ SCH (09:00)
[2017-08-25] MEDS: VANCOMYCIN 1 GM in IV D5W 250 ML IV SCH ×2 (09:59→17:12)
[2017-08-25] MEDS ORDERED: Z GUARD REMEDY 4 OZ OINT TP PRN (13:00)
[2017-08-25] MEDS: HYDROGEL DRESSING 90 GM TUBE TP SCH (13:10)
[2017-08-25] MEDS ORDERED: GLUCERNA 1.2 1,000 ML BOTTLE NG PRN (17:00)
[2017-08-25] MEDS: INSULIN GLARGINE, 100 UNIT/ML CARTRIDGE SQ SCH (17:10)
[2017-08-25] MEDS: GLUCERNA 1.2 1,000 ML BOTTLE NG PRN (18:28)
[2017-08-25] MEDS: FLUCONAZOLE IN NS 100 MG in PREMIX 1 EA IV SCH ×2 (22:38)
[2017-08-26] MEDS: BLOOD SUGAR DIAGNOSTIC 1 EACH STRIP IN SCH ×5 (01:15→23:24)
[2017-08-26] MEDS: PIPERACILLIN /TAZOBACTAM 3.375 G in IV D5W 50 ML IV SCH ×4 (01:15→17:01)
[2017-08-26] MEDS: IV NS 0.9% 1,000 ML IV PRN (01:25)
[2017-08-26] MEDS: ALBUTEROL FS 2.5 MG/3 ML VIAL.NEB NEB SCH ×4 (01:39→19:52)
[2017-08-26] MEDS: IPRATROPIUM NEB FS 0.5 MG/2.5 ML AMPUL.NEB NEB SCH ×4 (01:39→19:52)
[2017-08-26] MEDS: VANCOMYCIN 1 GM in IV D5W 250 ML IV SCH ×3 (02:16→21:42)
[2017-08-26] MEDS: ENOXAPARIN SODIUM 40 MG/0.4 ML DISP.SYRIN SQ SCH (08:19)
[2017-08-26] MEDS: PANTOPRAZOLE 40 MG TABLET.DR PO SCH (08:20)
[2017-08-26] MEDS: BACLOFEN (10 MG) 10 MG TABLET GT SCH ×3 (08:20→16:37)
[2017-08-26] MEDS: LACTOBACILLUS RHAMNOSUS GG 1 EACH CAP.SPRINK GT SCH ×2 (08:21→16:37)
[2017-08-26] MEDS: METFORMIN 500 MG TABLET GT SCH ×2 (08:21→16:36)
[2017-08-26] MEDS: DULOXETINE HCL 30 MG CAPSULE.DR GT SCH (08:22)
[2017-08-26] MEDS: ASCORBIC ACID 500 MG TABLET GT SCH (08:22)
[2017-08-26] MEDS: METOPROLOL TARTRATE 25 MG TABLET GT SCH ×2 (08:23→16:42)
[2017-08-26] MEDS: PREGABALIN 25 MG CAPSULE GT SCH ×2 (08:24→16:38)
[2017-08-26] MEDS: CHOLECALCIFEROL 1,000 UNIT TABLET (VIT D3) GT SCH (08:26)
[2017-08-26] MEDS: HYDROGEL DRESSING 90 GM TUBE TP SCH (08:50)
[2017-08-26] MEDS: MORPHINE SULFATE INJ 4 MG/ML DISP.SYRIN IV PRN ×2 (13:34→18:32)
[2017-08-26] MEDS: INSULIN GLARGINE, 100 UNIT/ML CARTRIDGE SQ SCH (17:12)
[2017-08-26] MEDS: NYSTATIN/TRIAMCIN CREAM 15 GM TUBE TP SCH (21:30)
[2017-08-26] MEDS ORDERED: VANCOMYCIN 1 GM VIAL ONE (21:32)
[2017-08-26] MEDS: TRAZODONE 50 MG TABLET GT SCH (21:42)
[2017-08-26] MEDS: FLUCONAZOLE IN NS 100 MG in PREMIX 1 EA IV SCH ×2 (23:04)
[2017-08-27] MEDS: PIPERACILLIN /TAZOBACTAM 3.375 G in IV D5W 50 ML IV SCH ×4 (00:09→18:02)
[2017-08-27] MEDS: IPRATROPIUM NEB FS 0.5 MG/2.5 ML AMPUL.NEB NEB SCH ×4 (01:25→20:06)
[2017-08-27] MEDS: ALBUTEROL FS 2.5 MG/3 ML VIAL.NEB NEB SCH ×4 (01:25→20:06)
[2017-08-27] MEDS: GLUCERNA 1.2 1,000 ML BOTTLE NG PRN (04:45)
[2017-08-27] MEDS: BLOOD SUGAR DIAGNOSTIC 1 EACH STRIP IN SCH ×3 (05:03→16:43)
[2017-08-27] MEDS: BACLOFEN (10 MG) 10 MG TABLET GT SCH ×3 (09:31→16:47)
[2017-08-27] MEDS: ASCORBIC ACID 500 MG TABLET GT SCH (09:31)
[2017-08-27] MEDS: LACTOBACILLUS RHAMNOSUS GG 1 EACH CAP.SPRINK GT SCH ×2 (09:31→16:47)
[2017-08-27] MEDS: METOPROLOL TARTRATE 25 MG TABLET GT SCH ×2 (09:31→16:52)
[2017-08-27] MEDS: METFORMIN 500 MG TABLET GT SCH ×2 (09:31→16:47)
[2017-08-27] MEDS: CHOLECALCIFEROL 1,000 UNIT TABLET (VIT D3) GT SCH (09:31)
[2017-08-27] MEDS: ENOXAPARIN SODIUM 40 MG/0.4 ML DISP.SYRIN SQ SCH (09:32)
[2017-08-27] MEDS: PANTOPRAZOLE 40 MG TABLET.DR PO SCH (09:32)
[2017-08-27] MEDS: DULOXETINE HCL 30 MG CAPSULE.DR GT SCH (09:32)
[2017-08-27] MEDS: PREGABALIN 25 MG CAPSULE GT SCH ×2 (09:44→16:52)
[2017-08-27] MEDS: HYDROGEL DRESSING 90 GM TUBE TP SCH ×2 (10:01→10:02)
[2017-08-27] MEDS: NYSTATIN/TRIAMCIN CREAM 15 GM TUBE TP SCH ×2 (10:03→22:12)
[2017-08-27] MEDS: MORPHINE SULFATE INJ 4 MG/ML DISP.SYRIN IV PRN ×3 (10:59→21:05)
[2017-08-27] MEDS: VANCOMYCIN 1 GM in IV D5W 250 ML IV SCH ×2 (11:41→21:47)
[2017-08-27] MEDS: INSULIN REGULAR, HUMAN 100 UNIT/ML 3 ML VIAL SQ PRN ×2 (12:30→16:59)
[2017-08-27] MEDS: PREGABALIN 100 MG CAPSULE GT SCH (16:51)
[2017-08-27] MEDS ORDERED: PREGABALIN 25 MG CAPSULE PO SCH (17:00)
[2017-08-27] MEDS: INSULIN GLARGINE, 100 UNIT/ML CARTRIDGE SQ SCH (18:02)
[2017-08-27] MEDS: MICAFUNGIN SODIUM 100 MG in IV NS 0.9% 100 ML IV SCH (21:00)
[2017-08-27] MEDS: TRAZODONE 50 MG TABLET GT SCH (22:14)
[2017-08-27] MEDS ORDERED: FLUCONAZOLE (100 MG) 100 MG TABLET PO SCH (23:00)
[2017-08-28] MEDS: BLOOD SUGAR DIAGNOSTIC 1 EACH STRIP IN SCH ×4 (00:35→17:05)
[2017-08-28] MEDS: PIPERACILLIN /TAZOBACTAM 3.375 G in IV D5W 50 ML IV SCH ×4 (00:35→17:20)
[2017-08-28] MEDS: INSULIN REGULAR, HUMAN 100 UNIT/ML 3 ML VIAL SQ PRN ×2 (00:41→12:21)
[2017-08-28] MEDS: ALBUTEROL FS 2.5 MG/3 ML VIAL.NEB NEB SCH ×5 (01:30→20:55)
[2017-08-28] MEDS: IPRATROPIUM NEB FS 0.5 MG/2.5 ML AMPUL.NEB NEB SCH ×5 (01:30→20:55)
[2017-08-28] MEDS: GLUCERNA 1.2 1,000 ML BOTTLE NG PRN ×2 (04:40→23:53)
[2017-08-28] MEDS: PANTOPRAZOLE 40 MG TABLET.DR PO SCH (07:24)
[2017-08-28] MEDS: MORPHINE SULFATE INJ 4 MG/ML DISP.SYRIN IV PRN (08:01)
[2017-08-28] MEDS: BACLOFEN (10 MG) 10 MG TABLET GT SCH ×3 (08:13→17:04)
[2017-08-28] MEDS: ENOXAPARIN SODIUM 40 MG/0.4 ML DISP.SYRIN SQ SCH (08:13)
[2017-08-28] MEDS: CHOLECALCIFEROL 1,000 UNIT TABLET (VIT D3) GT SCH (08:13)
[2017-08-28] MEDS: LACTOBACILLUS RHAMNOSUS GG 1 EACH CAP.SPRINK GT SCH ×2 (08:13→17:21)
[2017-08-28] MEDS: PREGABALIN 25 MG CAPSULE GT SCH ×2 (08:14→17:05)
[2017-08-28] MEDS: METFORMIN 500 MG TABLET GT SCH ×2 (08:14→17:04)
[2017-08-28] MEDS: ASCORBIC ACID 500 MG TABLET GT SCH (08:14)
[2017-08-28] MEDS: PREGABALIN 100 MG CAPSULE GT SCH ×2 (08:14→17:04)
[2017-08-28] MEDS: METOPROLOL TARTRATE 25 MG TABLET GT SCH ×2 (08:14→17:04)
[2017-08-28] MEDS: DULOXETINE HCL 30 MG CAPSULE.DR GT SCH (08:14)
[2017-08-28] MEDS: VANCOMYCIN 1 GM in IV D5W 250 ML IV SCH (09:00)
[2017-08-28] MEDS: HYDROGEL DRESSING 90 GM TUBE TP SCH (10:08)
[2017-08-28] MEDS: NYSTATIN/TRIAMCIN CREAM 15 GM TUBE TP SCH ×2 (10:08→21:37)
[2017-08-28] MEDS ORDERED: GENTAMICIN 160 MG in IV D5W 100 ML IV SCH (11:30)
[2017-08-28] MEDS: ACETYLCYSTEINE 10% SOLN 400 MG/4 ML VIAL NEB SCH ×4 (13:01→20:54)
[2017-08-28] MEDS: Magnesium 1GM/D5W 100ML PREMIX 100 ML IV SCH ×2 (14:05→15:05)
[2017-08-28] MEDS ORDERED: BARIUM SULFATE 148 GM SUSP.RECON PO ONE (14:17)
[2017-08-28] MEDS ORDERED: BARIUM SULFATE 240 ML ORAL.SUSP PO ONE (14:17)
[2017-08-28] MEDS: HYDROCODONE/APAP 5/325MG 1 EACH TABLET PO PRN ×2 (15:06→22:53)
[2017-08-28] MEDS: LIDOCAINE 5% (PATCH) 1 EA PATCH TP SCH (17:05)
[2017-08-28] MEDS: INSULIN GLARGINE, 100 UNIT/ML CARTRIDGE SQ SCH (17:18)
[2017-08-28] MEDS: MICAFUNGIN SODIUM 100 MG in IV NS 0.9% 100 ML IV SCH (20:17)
[2017-08-28] MEDS: TRAZODONE 50 MG TABLET GT SCH (21:36)
[2017-08-29] MEDS: BLOOD SUGAR DIAGNOSTIC 1 EACH STRIP IN SCH ×5 (00:52→23:13)
[2017-08-29] MEDS: PIPERACILLIN /TAZOBACTAM 3.375 G in IV D5W 50 ML IV SCH ×4 (00:56→17:19)
[2017-08-29] MEDS: ACETYLCYSTEINE 10% SOLN 400 MG/4 ML VIAL NEB SCH ×3 (01:02→14:46)
[2017-08-29] MEDS: ALBUTEROL FS 2.5 MG/3 ML VIAL.NEB NEB SCH ×4 (01:49→19:30)
[2017-08-29] MEDS: IPRATROPIUM NEB FS 0.5 MG/2.5 ML AMPUL.NEB NEB SCH ×4 (01:49→19:30)
[2017-08-29] MEDS: HYDROCODONE/APAP 5/325MG 1 EACH TABLET PO PRN ×2 (07:39→23:10)
[2017-08-29] MEDS: LACTOBACILLUS RHAMNOSUS GG 1 EACH CAP.SPRINK GT SCH ×2 (08:30→17:07)
[2017-08-29] MEDS: DULOXETINE HCL 30 MG CAPSULE.DR GT SCH (08:31)
[2017-08-29] MEDS: METFORMIN 500 MG TABLET GT SCH ×2 (08:31→17:12)
[2017-08-29] MEDS: ASCORBIC ACID 500 MG TABLET GT SCH (08:31)
[2017-08-29] MEDS: PANTOPRAZOLE 40 MG TABLET.DR PO SCH (08:32)
[2017-08-29] MEDS: METOPROLOL TARTRATE 25 MG TABLET GT SCH ×2 (08:32→17:09)
[2017-08-29] MEDS: CHOLECALCIFEROL 1,000 UNIT TABLET (VIT D3) GT SCH (08:33)
[2017-08-29] MEDS: BACLOFEN (10 MG) 10 MG TABLET GT SCH ×3 (08:33→17:07)
[2017-08-29] MEDS: PREGABALIN 25 MG CAPSULE GT SCH ×2 (08:34→17:10)
[2017-08-29] MEDS: ENOXAPARIN SODIUM 40 MG/0.4 ML DISP.SYRIN SQ SCH (08:34)
[2017-08-29] MEDS: PREGABALIN 100 MG CAPSULE GT SCH ×2 (08:34→17:10)
[2017-08-29] MEDS: VANCOMYCIN 0.75 GM in IV NS 0.9% 250 ML IV SCH ×2 (08:47→21:29)
[2017-08-29] MEDS: HYDROGEL DRESSING 90 GM TUBE TP SCH (08:48)
[2017-08-29] MEDS: NYSTATIN/TRIAMCIN CREAM 15 GM TUBE TP SCH ×2 (08:49→21:30)
[2017-08-29] MEDS: MORPHINE SULFATE INJ 4 MG/ML DISP.SYRIN IV PRN ×2 (12:25→18:36)
[2017-08-29] MEDS: LIDOCAINE 5% (PATCH) 1 EA PATCH TP SCH (17:19)
[2017-08-29] MEDS: INSULIN GLARGINE, 100 UNIT/ML CARTRIDGE SQ SCH (17:20)
[2017-08-29] MEDS: MICAFUNGIN SODIUM 100 MG in IV NS 0.9% 100 ML IV SCH (20:12)
[2017-08-29] MEDS: TRAZODONE 50 MG TABLET GT SCH (22:40)
[2017-08-30] MEDS: PIPERACILLIN /TAZOBACTAM 3.375 G in IV D5W 50 ML IV SCH ×3 (00:22→12:09)
[2017-08-30] MEDS: IPRATROPIUM NEB FS 0.5 MG/2.5 ML AMPUL.NEB NEB SCH ×3 (01:02→14:13)
[2017-08-30] MEDS: ALBUTEROL FS 2.5 MG/3 ML VIAL.NEB NEB SCH ×3 (01:02→14:13)
[2017-08-30] MEDS: BLOOD SUGAR DIAGNOSTIC 1 EACH STRIP IN SCH ×2 (05:44→12:30)
[2017-08-30] MEDS: GLUCERNA 1.2 1,000 ML BOTTLE NG PRN (05:54)
[2017-08-30] MEDS: MORPHINE SULFATE INJ 4 MG/ML DISP.SYRIN IV PRN (08:17)
[2017-08-30] MEDS: VANCOMYCIN 0.75 GM in IV NS 0.9% 250 ML IV SCH (08:20)
[2017-08-30] MEDS: CHOLECALCIFEROL 1,000 UNIT TABLET (VIT D3) GT SCH (08:22)
[2017-08-30] MEDS: PREGABALIN 100 MG CAPSULE GT SCH (08:22)
[2017-08-30] MEDS: PREGABALIN 25 MG CAPSULE GT SCH (08:22)
[2017-08-30] MEDS: ASCORBIC ACID 500 MG TABLET GT SCH (08:23)
[2017-08-30] MEDS: BACLOFEN (10 MG) 10 MG TABLET GT SCH ×2 (08:23→12:09)
[2017-08-30] MEDS: METFORMIN 500 MG TABLET GT SCH (08:23)
[2017-08-30] MEDS: PANTOPRAZOLE 40 MG TABLET.DR PO SCH (08:23)
[2017-08-30] MEDS: LACTOBACILLUS RHAMNOSUS GG 1 EACH CAP.SPRINK GT SCH (08:23)
[2017-08-30] MEDS: DULOXETINE HCL 30 MG CAPSULE.DR GT SCH (08:23)
[2017-08-30] MEDS: METOPROLOL TARTRATE 25 MG TABLET GT SCH (08:24)
[2017-08-30] MEDS: ACETYLCYSTEINE 10% SOLN 400 MG/4 ML VIAL NEB SCH (08:30)
[2017-08-30] MEDS: ENOXAPARIN SODIUM 40 MG/0.4 ML DISP.SYRIN SQ SCH (08:39)
[2017-08-30] MEDS: NYSTATIN/TRIAMCIN CREAM 15 GM TUBE TP SCH (09:24)
[2017-08-30] MEDS: HYDROGEL DRESSING 90 GM TUBE TP SCH (09:25)
[2017-08-30] MEDS ORDERED: AMOX-430 PO (11:44)
[2017-08-30] MEDS ORDERED: DOXY-182 PO (11:44)
[2017-08-30] MEDS ORDERED: VORI200T PO (11:44)
[2017-08-30] MEDS: HYDROCODONE/APAP 5/325MG 1 EACH TABLET PO PRN (13:44)
== END 2017-08-30 15:30 | disposition home health service (06) | DRG 853 ==
DX: A41.9 Sepsis, unspecified organism (principal); N17.0 Acute kidney failure with tubular necrosis; J69.0 Pneumonitis due to inhalation of food and vomit; G82.50 Quadriplegia, unspecified; G93.41 Metabolic encephalopathy; E44.0 Moderate protein-calorie malnutrition; L89.154 Pressure ulcer of sacral region, stage 4; E87.1 Hypo-osmolality and hyponatremia; B37.49 Other urogenital candidiasis; E86.0 Dehydration; Z86.73 Personal history of transient ischemic attack (TIA), and cerebral infarction without residual deficits; R13.10 Dysphagia, unspecified; Z93.1 Gastrostomy status; N31.9 Neuromuscular dysfunction of bladder, unspecified; I10 Essential (primary) hypertension; F32.9 Major depressive disorder, single episode, unspecified; F41.9 Anxiety disorder, unspecified; E11.65 Type 2 diabetes mellitus with hyperglycemia; Z68.22 Body mass index [BMI] 22.0-22.9, adult; D72.829 Elevated white blood cell count, unspecified; E86.1 Hypovolemia; D63.8 Anemia in other chronic diseases classified elsewhere; Z86.718 Personal history of other venous thrombosis and embolism; L89.621 Pressure ulcer of left heel, stage 1; L89.611 Pressure ulcer of right heel, stage 1; L89.519 Pressure ulcer of right ankle, unspecified stage; L89.892 Pressure ulcer of other site, stage 2; L30.4 Erythema intertrigo; L89.890 Pressure ulcer of other site, unstageable; Z74.01 Bed confinement status

== ENCOUNTER 2017-09-15 11:35 | Inpatient (IN) | payer BC ==
[~2017-09-15] VITALS: Ht 180.3 cm; Wt 65.8 kg
[~2017-09-15 11:35] MED LIST changes: +AMOX-430 PO; +DOXY-182 PO; +VORI200T PO
--- NOTE | 2017-09-15 11:37 | NUR ---
[id number] FROM HOME FOR AMS SINCE SATURDAY. PER FAMILY PT TOOK TRAZADONE X 2 DAYS AGO A NEW MEDICATION AND WAS ALTERED THE FOLLOWING MORNING. NAD NOTED. VSS. RR EVEN AND UNLABORED. PENDING MD HOUSE.
[2017-09-15 12:35] LABS: BASOPHILS % (AUTO) 0.2 % (0.0-2.0); EOSINOPHILS % (AUTO) 0.1 % (0.0-6.0); HEMATOCRIT 38 % (39-51); HEMOGLOBIN 12.7 g/dL (13.5-17.5); LYMPHOCYTES # (AUTO) 2.3 /CMM (0.8-4.8); LYMPHOCYTES % (AUTO) 12.1 % (20.0-44.0); MEAN CORPUSCULAR HGB CONC 33 g/dl (31.0-36.0); MEAN CORPUSCULAR VOLUME 79 fL (80-96); MONOCYTES # (AUTO) 1.3 /CMM (0.1-1.30); MONOCYTES % (AUTO) 7.1 % (2.0-12.0); NEUTROPHILS % (AUTO) 80.5 % (43.0-81.0); PLATELET COUNT (AUTO) 512 /CMM (150-450); RDW COEFFICIENT OF VARIATION 15.9 (11.5-15.0); WHITE BLOOD COUNT (AUTO) 18.6 K/uL (4.3-11.0)
[2017-09-15 12:39] LABS: CALCIUM, SERUM 9.6 mg/dL (8.5-10.1); CARBON DIOXIDE 30 mmol/L (21-32); CHLORIDE 96 mmol/L (98-107); CREATININE 0.9 mg/dL (0.6-1.3); GLUCOSE 140 mg/dL (74-106); POTASSIUM 4.5 mmol/L (3.5-5.1); SODIUM SERUM 133 mmol/L (136-145); UREA NITROGEN, BLOOD 27 mg/dL (7-18)
[2017-09-15 12:39] LABS: APPEARANCE,URINE Slightly Cloudy (CLEAR); BILIRUBIN,URINE Negative (NEGATIVE); BLOOD, URINE Trace-lysed Ery/uL (NEGATIVE); COLOR,URINE Yellow (YELLOW); KETONES,URINE Negative (NEGATIVE); LEUKOCYTE ESTERASE ,URINE Moderate (NEGATIVE); NITRITE, URINE Negative (NEGATIVE); PROTEIN,URINE 30 mg/dl (NEGATIVE); UGLUCOSE 500 MG/DL mg/dL (NEGATIVE); UROBILINOGEN,URINE 0.2 EU/dL (0.2)
[2017-09-15 12:44] LABS: ALANINE AMINOTRANSFERASE 19 U/L (12-78); ALBUMIN 2.8 g/dL (3.4-5.0); ALKALINE PHOSPHATASE 80 U/L (46-116); ASPARTATE AMINOTRANSFERASE 15 U/L (15-37); BILIRUBIN,DIRECT 0.1 mg/dL (0.0-0.2); BILIRUBIN,TOTAL 0.3 mg/dL (0.2-1.0); TOTAL PROTEIN, SERUM 7.6 g/dL (6.4-8.2)
[2017-09-15 12:49] LABS: TROPONIN I < 0.017 ng/mL (0.00-0.056)
[2017-09-15 12:54] LABS: INR 0.99 (0.85-1.15)
[2017-09-15 13:00] LABS: WBC,URINE TOO NUMEROUS TO COUN /HPF (0-3)
[2017-09-15 13:01] LABS: BACTERIA,URINE Moderate /HPF (None Seen); CALCIUM OXALATE CRYSTALS,UR Few /HPF (None Seen); SQUAMOUS EPITHELIAL CELL,UR Few /HPF (None Seen)
[2017-09-15] MEDS ORDERED: LEVOFLOXACIN 750 MG /D5W 150ML PIGGYBACK IV ONE (14:00)
[2017-09-15] MEDS ORDERED: LEVOFLOXACIN 750 MG /D5W 150ML 150 ML IV ONE (14:03)
[2017-09-15] MEDS ORDERED: CEFTRIAXONE 1 G in IV D5W 50 ML IV ONE (14:30)
[2017-09-15] MEDS ORDERED: IV NS 0.9% 1,000 ML BAG IV ONE ×2 (14:30→16:30)
[2017-09-15] MEDS ORDERED: BACL10TA PO ×2 (14:42)
[2017-09-15] MEDS ORDERED: HYDR25TA4 GT (14:42)
[2017-09-15] MEDS ORDERED: MULT1TAB73 PO (14:42)
[2017-09-15] MEDS ORDERED: FLUT1BLS IH (14:42)
[2017-09-15] MEDS ORDERED: OXYC5TAB3 GT (14:42)
[2017-09-15] MEDS ORDERED: FOLI0.8T2 PO (14:42)
[2017-09-15] MEDS ORDERED: CEFTRIAXONE 1GM BAG (ER ONLY) 50 ML IV ONE (14:47)
--- NOTE | 2017-09-15 16:11 | NUR ---
CALLED [facility] FOR PANEL CALL AND JOANNE LOYA WAS PAGED
--- NOTE | 2017-09-15 16:41 | NUR ---
PT IS ASSIGNED TO [facility]#: [id number], PT IS DIAGNOSED WITH AMS/UTI, AND JOANNE LOYA IS THE ACCEPTING LAYOUT WORKER.
[2017-09-15] MEDS ORDERED: MORPHINE SULFATE INJ 2 MG/ML DISP.SYRIN IV PRN (17:00)
[2017-09-15] MEDS ORDERED: LACTOBACILLUS RHAMNOSUS GG 1 EACH CAP.SPRINK GT SCH (17:00)
[2017-09-15] MEDS ORDERED: ACETAMINOPHEN 325 MG TABLET PO PRN (17:00)
[2017-09-15] MEDS ORDERED: ONDANSETRON HCL/PF 4 MG/2 ML VIAL IVP PRN ×2 (17:00→18:00)
[2017-09-15] MEDS ORDERED: ASPIRIN EC 81 MG TABLET.DR PO ONE ×2 (17:00→18:23)
[2017-09-15] MEDS ORDERED: MORPHINE SULFATE INJ 2 MG/ML DISP.SYRIN ONE (17:14)
[2017-09-15] MEDS ORDERED: MORPHINE SULFATE INJ 2 MG/ML DISP.SYRIN IV ONE (17:30)
[2017-09-15] MEDS: INSULIN GLARGINE, 100 UNIT/ML CARTRIDGE SQ SCH (18:00)
--- NOTE | 2017-09-15 18:05 | NUR ---
RECEIVED PATIENT IN ER VIA GURNEY. PATIENT A/OX1, MOANING. PATIENT APPEARED COLD AND CLAMMY, SWEATING. 3LPM, O2 SAT 93%, RESPIRATION LABORED AND CRACKLES NOTED. JO=[phone], [id number]=[phone] ON TELEMONITOR. APPLICATION SUPPORT INTERN, HEAD OF BUSINESS DEVELOPMENT, JOANNE THOMAS,MEDICAL BILLING COORDINATOR NOTIFIED. PER MEDICAL BILLING COORDINATOR, PATIENT WILL BE TRANSFER BETTY OR ICU. WILL MONITOR ACCORDINGLY.
--- NOTE | 2017-09-15 18:15 | NUR ---
RN NOTES STAT ABG AND STAT CT PULMONARY ANGIOGRAM ORDERED.
--- NOTE | 2017-09-15 19:20 | NUR ---
PATIENT TRANSFERRED TO ICU ROOM 262 VIA HOSPITAL BED, FIBERGLASS DOWEL DRAWING OPERATOR IN PLACE, ON 8LPM VIA MASK. ENDORSED TO [facility] ICU,RN FOR ARIADNE.
[2017-09-15] MEDS ORDERED: FUROSEMIDE 40 MG/4 ML VIAL IV SCH (19:30)
[2017-09-15 19:57] LABS: ABG BASE EXCESS 5.1 mmol/L; ABG OXYGEN SATURATION 91.7 % (92.0-98.5); ABG PCO2 45.5 mmHg (35.0-45.0); ABG PH 7.438 (7.350-7.450); ABG PO2 62.1 mmHg (75.0-100.0); AaDO2 112.8 mmHg; COHb 0.7 % (0.5-1.5); MetHb 0.5 % (0.0-1.5); O2Hb 90.6 % (94.0-97.0); SITE, ABG Right Brachial; VENT MODE, BG nasal cannula
[2017-09-15 20:06] VITALS: BP 142/91
[2017-09-15] MEDS: ALBUTEROL FS 2.5 MG/0.5 ML VIAL.NEB NEB SCH ×2 (20:18→23:27)
[2017-09-15] MEDS: IPRATROPIUM NEB FS 0.5 MG/2.5 ML AMPUL.NEB NEB SCH ×2 (20:18→23:27)
--- NOTE | 2017-09-15 20:18 | NUR ---
PT. UNSTABLE FOR CT, RN (ED) WILL CALL US WHEN READY.
[2017-09-15 20:30] VITALS: BP 147/95
[2017-09-15] MEDS: ENOXAPARIN SODIUM 40 MG/0.4 ML DISP.SYRIN SQ SCH (20:32)
[2017-09-15 20:46] VITALS: BP 142/91
[2017-09-15] MEDS ORDERED: CEFEPIME 1 GM VIAL ONE (20:56)
--- NOTE | 2017-09-15 20:56 | NUR ---
PT ON SM 6L. O2 SAT 99%. B/S HUI HERNANDEZ. PT IS RECEIVING Q4 BREATHING TX. WILL CONTINUE TO MONITOR. Addendum: 09/15/17 at 2056 by MICHAEL SUN RT Amended: Links added.
[2017-09-15 21:00] VITALS: BP 151/68
--- NOTE | 2017-09-15 21:00 | NUR ---
RN NOTES 1929 PM- ADMITTED PATIENT FROM [facility]. DUE TO AMS / UTI UNDER JOANNE RESIDENT CARE ASSISTANT DIAGNOSED WITH SEPSIS. WITH MEDICAL HX. OF CVA, DM, RESP FAILURE, QUADRIPLEGIC , NEUROGENIC BLADDER CERVICAL NECK FUSION, DVT ON LEFT LEG ALLERGIC TO AMOXICILLIN -POT CLAVULANATE PER RECORD. PT IS LETHARGIC, SWEATY COLD AND CLAMMY. TELE MONITOR PLACED REVEALS ST HR 134, 02 6LPM VIA MASK PRESENT SATING 97%, PT MOANED NON VERBAL. IV SITE ON LEFT WRIST G 16 WITH GOOD BLOOD RETURN FLUSHED WELL. WITH RENNER CATH DRAINED YELLOW COLOR URINE. SKIN ASSESSMENT DONE PHOTO TAKEN. KEPT PT CLEAN AND COMFORTABLE IN BED WILL CONTINUE TO MONITOR. Addendum: 09/16/17 at 0121 by KALPESH MORALES RN BILATERAL BREATH SOUND CRACKLES NOTED. SUCTIONED WITH THICK YELLOWISH SECRETION BY RT. UPPER AND LOWER EXT SEVERE WEAKNESS PRESENT. OFFLOADED EXT WITH PILLOWS. VS TAKEN, PT IS AFEBRILE. PULSE 134 BP 142/ 91 MMHG. SATING 97%.
[2017-09-15] MEDS: CEFEPIME 1 GM in IV D5W 50 ML IV SCH (21:12)
[2017-09-15] MEDS ORDERED: ASPIRIN 81 MG TAB.CHEW ONE (21:19)
[2017-09-15] MEDS: IV NS 0.9% 1,000 ML IV SCH (21:23)
[2017-09-15] MEDS ORDERED: DEXTROSE 50%-WATER 50 ML DISP.SYRIN IV PRN (21:30)
[2017-09-15] MEDS ORDERED: INSULIN REGULAR, HUMAN 100 UNIT/ML 3 ML VIAL SQ PRN (21:30)
--- NOTE | 2017-09-15 21:39 | NUR ---
PT NT SX'D, OBTAINED LARGE AMT OF THICK YELLOW SECRETIONS. RN AT BEDSIDE.
[2017-09-15 22:00] VITALS: BP 143/74
--- NOTE | 2017-09-15 22:00 | NUR ---
RN NOTES CALLED ALEISHA BARRETT PT'S BROTHER SEEN ON FACE SHEET TO FIND OUT AND GET SOME MORE INFORMATION REGARDING THE PATIENT BUT BROTHER IS UNAVAILABLE TO REACH AT THIS TIME. WILL FOLLOW UP.
[2017-09-15 23:00] VITALS: BP 136/99
[2017-09-15] MEDS: ACETYLCYSTEINE 10% SOLN 400 MG/4 ML VIAL NEB SCH (23:27)
--- NOTE | 2017-09-15 23:50 | NUR ---
RN NOTES 2330 PM - LEFT A MESSAGE TO ADY DIGITAL DESIGN ENGINEER WIRE TINNER THAT THE PATIENT HAS AN ORDER OF CT PULMONARY ANGIOGRAM BUT PT IS A HARD STICK AND THERES NO AVAILABLE STAFF TO PLACE PICC LINE TONIGHT, AND INFORMED THAT THE PATIENT STILL CONGESTED, SWEATY AND VERY DISCOMFORT AND THERE'S ONLY ONE TIME ORDER OF LASIX 40 MG IVP GIVEN. PT SATING 97% AT THIS TIME. 2340 PM - DAVIDA CAME TO THE FLOOR AND ASSESSED THE PT, UPDATED ABOUT THE PT. STATUS PER DIGITAL DESIGN ENGINEER OLIVER TO DEEP SUCTION ONE MORE TIME CAUSE THE PT IS EXTREMELY CONGESTED. AND ITS OK TO DO CT ANGIOGRAM IN THE MORNING WHEN NEW IV WAS PLACED. CALLED INFORMED RT ABOUT THE ORDER. WILL MONITOR PT CLOSELY.
[2017-09-16] VITALS (27 sets, daily range): BP systolic 114–168; BP diastolic 68–99
[2017-09-16] MEDS ORDERED: METRONIDAZOLE 500MG/ NS 100ML 100 ML IV ONE ×2 (00:32→05:24)
[2017-09-16] MEDS: METRONIDAZOLE 500MG/ NS 100ML 500 MG in PREMIX 1 EA IV SCH ×4 (00:37→17:12)
[2017-09-16] MEDS: BLOOD SUGAR DIAGNOSTIC 1 EACH STRIP IN SCH ×4 (00:43→17:15)
--- NOTE | 2017-09-16 04:01 | NUR ---
RN NOTES SPUTUM INDUCED DONE FOR CULTURE WITH GRAM BY RT.
[2017-09-16] MEDS: ALBUTEROL FS 2.5 MG/0.5 ML VIAL.NEB NEB SCH ×5 (04:19→19:43)
[2017-09-16] MEDS: IPRATROPIUM NEB FS 0.5 MG/2.5 ML AMPUL.NEB NEB SCH ×5 (04:19→19:43)
[2017-09-16 05:09] LABS: BASOPHILS % (AUTO) 0.2 % (0.0-2.0); HEMATOCRIT 40 % (39-51); HEMOGLOBIN 13.3 g/dL (13.5-17.5); LYMPHOCYTES % (AUTO) 13.5 % (20.0-44.0); MEAN CORPUSCULAR HGB CONC 33 g/dl (31.0-36.0); MEAN CORPUSCULAR VOLUME 81 fL (80-96); MONOCYTES # (AUTO) 0.8 /CMM (0.1-1.30); MONOCYTES % (AUTO) 5.2 % (2.0-12.0); NEUTROPHILS % (AUTO) 81.1 % (43.0-81.0); PLATELET COUNT (AUTO) 474 /CMM (150-450); RDW COEFFICIENT OF VARIATION 16.9 (11.5-15.0); RED BLOOD CELL COUNT(AUTO) 4.98 MIL/uL (4.5-6.0); WHITE BLOOD COUNT (AUTO) 14.8 K/uL (4.3-11.0)
[2017-09-16 05:33] LABS: CALCIUM, SERUM 9.8 mg/dL (8.5-10.1); MAGNESIUM 2.1 mg/dL (1.8-2.4); PHOSPHORUS 4.2 mg/dL (2.5-4.9); POTASSIUM 4.2 mmol/L (3.5-5.1)
--- NOTE | 2017-09-16 06:38 | NUR ---
RN NOTES PT IS MORE AWAKE, BUT STILL NON VERBAL, MOANED. AFEBRILE. NO ACUTE RESP DISTRESS NOR SOB NOTED. TOLERATED O2 6LPM VIA MASK SATURATION IS BEEN STABLE PT . REMAINED SINUS TACH 100'S ON TELE MONITOR TMAX 97.8 DEG FAHRENHEIT. WITH GOOD URINE OUTPUT. GTF REMAINED INTACT AND PATENT NO RESIDUAL. IV SITE INTACT AND PATENT IVF ONGOING. NO SIGNIFICANT CHANGES THROUGHOUT THE SHIFT. WILL ENDORSED CONTINUITY OF CARE TO AM NURSE IN REGARDS TO PICC LINE PLACEMENT AND FOR CT PULMONARY ANGIOGRAM TODAY. PT IS CLEANED AND DRY.
[2017-09-16] MEDS: ACETYLCYSTEINE 10% SOLN 400 MG/4 ML VIAL NEB SCH ×2 (07:30→16:06)
[2017-09-16] MEDS: FLUTICASONE/VILANTEROL 1 EACH BLST.W.DEV IH SCH (09:00)
[2017-09-16] MEDS ORDERED: HYDROCHLOROTHIAZIDE 25 MG TABLET GT SCH (09:00)
[2017-09-16] MEDS ORDERED: PANTOPRAZOLE 40 MG VIAL IV SCH (09:00)
[2017-09-16] MEDS ORDERED: FLUTICASONE/VILANTEROL 1 EACH BLST.W.DEV IH SCH (09:00)
[2017-09-16] MEDS: VIT B CMPLX 3/FA/VIT C/BIOTIN 1 TAB TABLET GT SCH (09:51)
[2017-09-16] MEDS: PANTOPRAZOLE 40 MG VIAL IV SCH (09:51)
[2017-09-16] MEDS: LACTOBACILLUS RHAMNOSUS GG 1 EACH CAP.SPRINK GT SCH ×2 (09:51→17:12)
[2017-09-16] MEDS: HYDROCHLOROTHIAZIDE 25 MG TABLET GT SCH (09:52)
[2017-09-16] MEDS: MULTIVITAMINS,THERAGRAN 1 UDTAB TABLET GT SCH (09:52)
[2017-09-16] MEDS: ASCORBIC ACID 500 MG TABLET GT SCH (09:52)
[2017-09-16] MEDS: ASPIRIN 81 MG TAB.CHEW PO SCH (09:52)
[2017-09-16] MEDS: CEFEPIME 1 GM in IV D5W 50 ML IV SCH ×2 (10:00→20:44)
--- NOTE | 2017-09-16 10:30 | NUR ---
RN NOTES ALEISHA BARRETT BROTHER CAME AND VISITED THE PT. AND WANTS TO TALK TO MD. JOANNE PERSAUD AWARE.
--- NOTE | 2017-09-16 11:00 | NUR ---
RN NOTES ALEISHA BROTHER SIGNED CONSENT FOR CT PULMONARY ANGIOGRAM AND PICC LINE. PER BROTHER PT [facility] DIAGNOSED WITH PNA AND CONTINUE IV ATB AT HOME WITH HOME HEALTH NURSE COMING IN THEIR HOUSE. AND HE WANTS TO KNOW THE PLAN OF CARE TO HIS BROTHER. JANINA RUBIO MADE AWARE.
[2017-09-16] MEDS ORDERED: FEE PK DOSING 1 MIN EA MC ONE (12:06)
[2017-09-16] MEDS ORDERED: VANCOMYCIN 1 GM in IV D5W 250 ML IV ONE (13:00)
--- NOTE | 2017-09-16 13:00 | NUR ---
RN NOTES TRANSFER CONTINUITY OF CARE AND GIVE SUMMARY AND UPDATE TO PT STATUS TO [facility] MOTOR VEHICLES SUPERVISOR.
--- NOTE | 2017-09-16 13:00 | NUR ---
[place] AND SILVERWARE SALESPERSON NOTES RECEIVED PATIENT AOX1 , MOANS AND GROANS , ON 6LPM SIMPLE MASK WITH SPO2 OF 100% DEEP AND UNLABORED RESPIRATIONS , ST 115 ON BEDSIDE MONITOR , GT PATENT AND INTACT CLAMPED , FC DRAINING VIA GRAVITY WITH CLOUDY YELLOW URINE , KCI MATTRESS APPLIED , IV OF LWRIST # 16 PATENT AND INTACT SL , MALIHA PICC LINE WITH NS @ 50ML/HR INFUSING WELL , ALL NEEDS ATTENDED ,BED ON LOW AND LOCKED POSITION , SIDE RAILS X2, CALL LIGHT WITHIN REACH , HOB @ 45 , WILL CONTINUE TO MONITOR
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
[2017-09-16] MEDS: MORPHINE SULFATE INJ 4 MG/ML DISP.SYRIN IV PRN ×2 (14:13→20:45)
--- NOTE | 2017-09-16 15:16 | NUR ---
VP LEGAL AFFAIRS NOTES SPOKE WITH DR DASH , DISCUSSED LABS , CHEST XRAY RESULT , PT ON 6 LPM SIMPLE MASK SPO2 OF 100% , DEEP SUCTIONED PRN NOTED WITH THICK YELLOW SECRETIONS , DISCUSSED VENOUS DOPPLER STUDIES RESULT , V/S STABLE , AFEBRILE , VERIFIED ORDER FOR CT PULMO ANGIO , PER MD DISCONTINUE ORDER SUSPICION FOR PULMONARY EMBOLISM IS LOW , ORDER CARRIED OUT
--- NOTE | 2017-09-16 15:30 | NUR ---
SHINGLE SHEARING MACHINE OPERATOR NOTES DR MACKEY AT BEDSIDE , SPOKE WITH ALEISHA BARRETT EXPLAINED THE PT NEEDS SACRAL DEBRIDEMENT , EXPLAINED THE RISK AND BENEFITS OF THE PROCEDURE , AGREED WITH THE PROCEDURE AND SIGNED THE CONSENT PT STABLE POST DEBRIDEMENT , NO ACTIVE BLEEDING NOTED , WOUND TREATMENT RECEIVED VIA VERBAL ORDER , PER DR MACKEY , CLEANSE SACRAL WOUND WITH NS , PAT DRY , APPLIED MOISTEN GAUZE WITH DAKINS SOLUTION AND COVERED WITH MEPILEX . ORDER CARRIED OUT .
[2017-09-16] MEDS ORDERED: DAKINS HALF STRENGTH (0.25%) 480 ML BOTTLE TOP PRN (16:00)
[2017-09-16] MEDS: IV NS 0.9% 1,000 ML IV SCH (17:12)
[2017-09-16] MEDS: INSULIN GLARGINE, 100 UNIT/ML CARTRIDGE SQ SCH (17:15)
--- NOTE | 2017-09-16 18:30 | NUR ---
STAVE GRADER NOTES SPOKE WITH JOANNE , NOTIFIED REGARDING DUPLEX VENOUS STUDIES RESULT , DR DASH DISCONTINUED CT PULMO ANGIO THERE IS LOW PROBABILITY OF PULMONARY EMBOLISM , VERIFIED IF HE WANTS TO START FEEDING , PER GEOTECHNICAL ENGINEERING TECHNICIAN VERIFY WITH DR DASH VERIFIED WITH DR DASH IF WE CAN START GT FEEDING , PT NOTED WITH THICK YELLOW SECRETIONS UPON DEEP SUCTIONING , PER MD START GT FEEDING PER DIETARY RECOMMENDATION .
--- NOTE | 2017-09-16 18:33 | NUR ---
DRUPAL PROGRAMMER NOTES NOTIFIED JOANNE THAT DR DASH AGREED TO START GT FEEDING PER DIETARY RECOMMENDATION , VERIFIED IF SHE WANTS TO CHANGE INSULIN SLIDING SCALE PT IS ON NPO Q6 , MEDICAID SERVICE COORDINATOR IS AWARE , AWAITING FOR ORDERS
[2017-09-16] MEDS ORDERED: INSULIN REGULAR, HUMAN 100 UNIT/ML 3 ML VIAL SQ PRN (19:00)
[2017-09-16] MEDS ORDERED: DEXTROSE 50%-WATER 50 ML DISP.SYRIN IV PRN (19:00)
--- NOTE | 2017-09-16 19:30 | NUR ---
NURSE TECH INITIAL NOTES RECEIVED PATIENT AWAKE ALERT AND ORIENTED TO SELF. DENIES PAIN OR DISCOMFORT. NO RESPIRATORY DISTRESS NOTED, ON 7LPMO2 VIA SIMPLE MASK, SPO2 98%. ON TELE MONITOR SINUS TACH. SKIN WARM AND DRY TO TOUCH. WITH GT PATENT, INTACT, IN PLACE, CLAMPED. WITH F/C PATENT AND INTACT, DRAINING BY GRAVITY. OUTPUT YELLOW, CLOUDY. WITH MALIHA PICC LINE PATENT AND INTACT, IVF RUNNING. HOB ELEVATED. TURNED AND REPOSITIONED. SIDE RAILS UP AND LOCKED. BED KEPT AT LOWEST POSITION. WILL CONTINUE TO MONITOR.
[2017-09-16] MEDS: GLUCERNA 1.2 1,000 ML BOTTLE NG PRN (19:50)
[2017-09-16] MEDS: DAKINS QUARTER STRENGTH (0.125%) 480 ML BOTTLE TOP SCH (20:00)
[2017-09-16] MEDS ORDERED: LIDOCAINE 1%-EPI 1:100,000 20 ML VIAL TP ONE (20:00)
[2017-09-16] MEDS ORDERED: SILVER NITRATE APPLICATOR 1 EA BOX TP ONE (20:00)
--- NOTE | 2017-09-16 20:00 | NUR ---
BASTING MARKER NOTE NOTED WITH TEMP 99.1. COOLING MEASURES RENDERED. WILL CONTINUE TO MONITOR.
[2017-09-16] MEDS: ENOXAPARIN SODIUM 40 MG/0.4 ML DISP.SYRIN SQ SCH (20:50)
[2017-09-16] MEDS ORDERED: BLOOD SUGAR DIAGNOSTIC 1 EACH STRIP IN SCH (22:00)
[2017-09-17] VITALS (25 sets, daily range): BP systolic 124–170; BP diastolic 62–98
--- NOTE | 2017-09-17 | NUR ---
PAPERHANGER AND PAINTER NOTE TOLERATING GTF, RATE INCREASED TO 30ML/HR. NOTED PATIENT MOANING, WHEN ASKED IF HE NEEDS ANYTHING PATIENT STATES "NO, HE'S FINE" WILL CONTINUE TO MONITOR.
[2017-09-17] MEDS: ACETYLCYSTEINE 10% SOLN 400 MG/4 ML VIAL NEB SCH ×4 (00:08→22:43)
[2017-09-17] MEDS: IPRATROPIUM NEB FS 0.5 MG/2.5 ML AMPUL.NEB NEB SCH ×7 (00:08→22:43)
[2017-09-17] MEDS: ALBUTEROL FS 2.5 MG/0.5 ML VIAL.NEB NEB SCH ×7 (00:08→22:43)
[2017-09-17] MEDS ORDERED: VANCOMYCIN 1 GM VIAL ONE (00:08)
[2017-09-17] MEDS: BLOOD SUGAR DIAGNOSTIC 1 EACH STRIP IN SCH ×5 (00:15→23:43)
[2017-09-17] MEDS: METRONIDAZOLE 500MG/ NS 100ML 500 MG in PREMIX 1 EA IV SCH ×5 (00:15→23:30)
[2017-09-17] MEDS: VANCOMYCIN 0.75 GM in IV D5W 250 ML IV SCH ×2 (00:17→13:00)
[2017-09-17] MEDS: ACETAMINOPHEN 325 MG TABLET PO PRN ×3 (00:33→20:06)
[2017-09-17] MEDS: MORPHINE SULFATE INJ 4 MG/ML DISP.SYRIN IV PRN ×2 (02:29→12:17)
--- NOTE | 2017-09-17 04:00 | NUR ---
SENIOR LIVING ADVISOR NOTE TOLERATING GTF, RATE INCREASED TO 40ML/HR. PATIENT DENIES N/V. WILL CONTINUE TO MONITOR.
[2017-09-17 04:32] LABS: BASOPHILS # (AUTO) 0.1 /CMM (0.0-0.2); BASOPHILS % (AUTO) 0.8 % (0.0-2.0); HEMATOCRIT 33 % (39-51); HEMOGLOBIN 11.1 g/dL (13.5-17.5); LYMPHOCYTES # (AUTO) 1.6 /CMM (0.8-4.8); MEAN CORPUSCULAR HGB CONC 33 g/dl (31.0-36.0); MEAN CORPUSCULAR VOLUME 81 fL (80-96); MONOCYTES # (AUTO) 0.9 /CMM (0.1-1.30); NEUTROPHILS # (AUTO) 11.8 /CMM (1.8-8.9); NEUTROPHILS % (AUTO) 82.2 % (43.0-81.0); PLATELET COUNT (AUTO) 445 /CMM (150-450); RED BLOOD CELL COUNT(AUTO) 4.12 MIL/uL (4.5-6.0); WHITE BLOOD COUNT (AUTO) 14.4 K/uL (4.3-11.0)
[2017-09-17 04:50] LABS: CALCIUM, SERUM 9.5 mg/dL (8.5-10.1); MAGNESIUM 2.2 mg/dL (1.8-2.4); PHOSPHORUS 4.4 mg/dL (2.5-4.9); POTASSIUM 3.8 mmol/L (3.5-5.1)
[2017-09-17] MEDS: INSULIN REGULAR, HUMAN 100 UNIT/ML 3 ML VIAL SQ PRN ×2 (05:31→23:45)
--- NOTE | 2017-09-17 07:19 | NUR ---
BUILDING CONSTRUCTION CONTRACTOR CLOSING NOTE NO SIGNIFICANT CHANGES OVERNIGHT. NO RESPIRATORY DISTRESS NOTED, SUCTIONED NEEDED. PAIN MONITORED AND MANAGED NEEDED. KEPT CLEAN AND DRY. TOLERATING GTF. ALL NEEDS ANTICIPATED AND MET. ALL DUE MEDS GIVEN. WOUND TX DONE. HOB KEPT ELEVATED. SIDE RAILS UP AND LOCKED. BED KEPT AT LOWEST POSITION. CONTINUITY OF CARE ENDORSED TO AM NURSE.
--- NOTE | 2017-09-17 08:00 | NUR ---
PATIENT SEEN AWAKE, FOLLOWS SIMPLE COMMANDS, ANSWERS APPROPRIATELY, ORIENTED TO NAME AND PLACE. REORIENTED TO TIME. MOANS BUT DENIES PAIN WHEN ASKED. ON 6 L SM-SATTING 100%. TITRATED DOWN TO O2 AT 2 L N/C- SPO2 REMIANS 98%. KEPT HOB ELEVATED. ST 100'S ON THE MONITOR. SBP>150'S. TOLERATING TUBE FEEDING WELL-WILL READJUST TO GOAL RATE OF 65 MLS/HR. ADEQUATE URINE OUTPUT.
[2017-09-17] MEDS: CEFEPIME 1 GM in IV D5W 50 ML IV SCH ×2 (08:25→20:06)
[2017-09-17] MEDS: HYDROCHLOROTHIAZIDE 25 MG TABLET GT SCH (08:25)
[2017-09-17] MEDS: PANTOPRAZOLE 40 MG VIAL IV SCH (08:25)
[2017-09-17] MEDS: MULTIVITAMINS,THERAGRAN 1 UDTAB TABLET GT SCH (08:26)
[2017-09-17] MEDS: VIT B CMPLX 3/FA/VIT C/BIOTIN 1 TAB TABLET GT SCH (08:26)
[2017-09-17] MEDS: ASCORBIC ACID 500 MG TABLET GT SCH (08:26)
[2017-09-17] MEDS: ASPIRIN 81 MG TAB.CHEW PO SCH (08:26)
[2017-09-17] MEDS: LACTOBACILLUS RHAMNOSUS GG 1 EACH CAP.SPRINK GT SCH ×2 (08:27→17:27)
[2017-09-17] MEDS: DAKINS QUARTER STRENGTH (0.125%) 480 ML BOTTLE TOP SCH (08:27)
--- NOTE | 2017-09-17 09:00 | NUR ---
PATIENT SEEN AND EXAMINED BY DR. HI TO DOWNGRADE TO LOWER LEVEL OF CARE PER MD.
--- NOTE | 2017-09-17 10:00 | NUR ---
PATIENT BROTHER ALEISHA AT BEDSIDE-UPDATED WITH PLAN OF CARE.
--- NOTE | 2017-09-17 10:41 | NUR ---
WOUND CARE CONSULT WOUND CARE RECEIVED CONSULT FOR SACRA PRESSURE SORE. WOUND CARE WILL DEFER CONSULT AND ALL TREATMENT PLANS TO SURGICAL TEAM WHO ARE CURRENTLY FOLLOWING. PATIENT WITH LILY AT 13, ALL PRESSURE ULCER PREVENTION MEASURES NOTED TO BE IN PLACE AT THIS TIME.
[2017-09-17] MEDS ORDERED: Z GUARD REMEDY 2 OZ OINT TP PRN (11:00)
--- NOTE | 2017-09-17 11:05 | NUR ---
PATIENT SEEN AND EXAMINED BY LUCHO SANTIAGO. ACNP SPOKE AT LENGTH TO PATIENT BROTHER AT BEDSIDE.
[2017-09-17] MEDS: FLUTICASONE/VILANTEROL 1 EACH BLST.W.DEV IH SCH (11:51)
[2017-09-17] MEDS: Z GUARD REMEDY 2 OZ OINT TP SCH (11:51)
--- NOTE | 2017-09-17 12:00 | NUR ---
PATIENT CONDITION STABLE. PER DR. DASH/LUCHO SANTIAGO ACNP-OKAY TO DOWNGRADE TO [facility].
[2017-09-17] MEDS: NYSTATIN TOP POWDER 15 GM BOTTLE TP SCH (17:28)
[2017-09-17] MEDS: IV NS 0.9% 1,000 ML IV SCH ×2 (17:28→23:30)
--- NOTE | 2017-09-17 18:11 | NUR ---
[facility] RN NOTE RECEIVED REPORT FROM LORENA ANDREWS ICU. PT TRANSFERRED VIA GURNEY. STABLE TO DOWNGRADE FROM ICU. PT CALM AND COOPERATIVE. A/O X2 . ALL SAFETY MEASURES IN PLACE. TRANSFERRED WITH BELONGINGS. V/S STABLE WITH PATIENT BASELINE.
--- NOTE | 2017-09-17 18:15 | NUR ---
PATIENT REMAINS STABLE HEMODYNAMICALLY. NO DISTRESS. PATIENT TRANSFERRED TO [facility]-REPORT GIVEN TO JULIANA ROBLES.
--- NOTE | 2017-09-17 19:24 | NUR ---
[facility] RN CLOSING NOTE. REPORT GIVEN TO JARED FOR ARIADNE. PATIENT RESTING COMFORTABLY. PT CLEAN AND DRY . ALL SAFETY MEASURES IN PLACE. PT A/O2 WITH PERIODS OF CONFUSION. BROTHER ALEISHA AWARE OF TRANSFER TO [facility].
--- NOTE | 2017-09-17 19:30 | NUR ---
[facility]/RN NOTES: RECEIVED PT. IN BED W/ HOB ELEVATED AT ALL TIMES. A/O X 1 W/ PERIODS OF CONFUSION AND DISORIENTATION. ON TELE MONITOR W/ ST @ 112. ON O2 @ 2 LPM VIA N/C SAT. 98%. HAS A MALIHA PICC LINE PATENT AND INTACT W/ DRESSING INTACT W/ NO S/S OF INFECTION/INFILTRATION NOTED. W/ NS @ 50CC/HR. W/ GLUCERNA @ 65 CC/HR W/ NO RESIDUAL NOTED. FLUSH AND PATENT. DENIES ANY C/O PAIN OR SOB AT PRESENT. WILL CONTINUE TO MONITOR.
[2017-09-17] MEDS: FLUCONAZOLE (100 MG) 100 MG TABLET PO SCH (20:06)
[2017-09-17] MEDS: ENOXAPARIN SODIUM 40 MG/0.4 ML DISP.SYRIN SQ SCH (20:07)
[2017-09-17] MEDS: INSULIN GLARGINE, 100 UNIT/ML CARTRIDGE SQ SCH (21:16)
[2017-09-17] MEDS: GLUCERNA 1.2 1,000 ML BOTTLE NG PRN (23:29)
[2017-09-18] VITALS: BP 158/89
[2017-09-18] MEDS: VANCOMYCIN 0.75 GM in IV D5W 250 ML IV SCH (00:41)
[2017-09-18] MEDS: IPRATROPIUM NEB FS 0.5 MG/2.5 ML AMPUL.NEB NEB SCH ×6 (02:46→23:44)
[2017-09-18] MEDS: ALBUTEROL FS 2.5 MG/0.5 ML VIAL.NEB NEB SCH ×6 (02:47→23:44)
[2017-09-18 04:00] VITALS: BP 154/86
[2017-09-18] MEDS: METRONIDAZOLE 500MG/ NS 100ML 500 MG in PREMIX 1 EA IV SCH ×2 (05:17→12:02)
[2017-09-18] MEDS: BLOOD SUGAR DIAGNOSTIC 1 EACH STRIP IN SCH ×4 (05:25→23:03)
[2017-09-18 06:24] LABS: BASOPHILS % (AUTO) 0.6 % (0.0-2.0); EOSINOPHILS % (AUTO) 0.2 % (0.0-6.0); HEMATOCRIT 38 % (39-51); HEMOGLOBIN 12.3 g/dL (13.5-17.5); LYMPHOCYTES # (AUTO) 1.5 /CMM (0.8-4.8); LYMPHOCYTES % (AUTO) 17.7 % (20.0-44.0); MEAN CORPUSCULAR HGB CONC 33 g/dl (31.0-36.0); MEAN CORPUSCULAR VOLUME 81 fL (80-96); MONOCYTES # (AUTO) 0.6 /CMM (0.1-1.30); MONOCYTES % (AUTO) 7.2 % (2.0-12.0); NEUTROPHILS # (AUTO) 6.1 /CMM (1.8-8.9); NEUTROPHILS % (AUTO) 74.3 % (43.0-81.0); PLATELET COUNT (AUTO) 442 /CMM (150-450); RED BLOOD CELL COUNT(AUTO) 4.64 MIL/uL (4.5-6.0); WHITE BLOOD COUNT (AUTO) 8.2 K/uL (4.3-11.0)
[2017-09-18 06:54] LABS: CALCIUM, SERUM 9.8 mg/dL (8.5-10.1); CREATININE 0.9 mg/dL (0.6-1.3); MAGNESIUM 2.1 mg/dL (1.8-2.4); POTASSIUM 3.6 mmol/L (3.5-5.1)
--- NOTE | 2017-09-18 07:16 | NUR ---
[facility]/RN NOTES: NO ACUTE CHANGES NOTED DURING THIS SHIFT. REPORT GIVEN TO AM NURSE FOR ARIADNE.
[2017-09-18] MEDS: ACETYLCYSTEINE 10% SOLN 400 MG/4 ML VIAL NEB SCH ×3 (07:18→23:44)
[2017-09-18] MEDS: MORPHINE SULFATE INJ 4 MG/ML DISP.SYRIN IV PRN ×2 (07:51→12:02)
[2017-09-18 08:00] VITALS: BP 148/89
[2017-09-18] MEDS: MULTIVITAMINS,THERAGRAN 1 UDTAB TABLET GT SCH (09:05)
[2017-09-18] MEDS: LACTOBACILLUS RHAMNOSUS GG 1 EACH CAP.SPRINK GT SCH ×2 (09:05→17:54)
[2017-09-18] MEDS: FLUTICASONE/VILANTEROL 1 EACH BLST.W.DEV IH SCH (09:05)
[2017-09-18] MEDS: PANTOPRAZOLE 40 MG VIAL IV SCH (09:05)
[2017-09-18] MEDS: ASCORBIC ACID 500 MG TABLET GT SCH (09:06)
[2017-09-18] MEDS: HYDROCHLOROTHIAZIDE 25 MG TABLET GT SCH (09:06)
[2017-09-18] MEDS: VIT B CMPLX 3/FA/VIT C/BIOTIN 1 TAB TABLET GT SCH (09:06)
[2017-09-18] MEDS: Z GUARD REMEDY 2 OZ OINT TP SCH (09:06)
[2017-09-18] MEDS: ASPIRIN 81 MG TAB.CHEW PO SCH (09:06)
[2017-09-18] MEDS: NYSTATIN TOP POWDER 15 GM BOTTLE TP SCH ×2 (09:07→17:54)
[2017-09-18] MEDS: DAKINS QUARTER STRENGTH (0.125%) 480 ML BOTTLE TOP SCH (09:07)
[2017-09-18] MEDS: CEFEPIME 1 GM in IV D5W 50 ML IV SCH ×2 (09:07→20:06)
[2017-09-18 12:00] VITALS: BP 161/85
[2017-09-18] MEDS: INSULIN REGULAR, HUMAN 100 UNIT/ML 3 ML VIAL SQ PRN ×2 (12:41→23:02)
[2017-09-18] MEDS: GLUCERNA 1.2 1,000 ML BOTTLE NG PRN (14:40)
[2017-09-18 16:00] VITALS: BP 135/84
[2017-09-18] MEDS: LIDOCAINE 5% (PATCH) 1 EA PATCH TP SCH (17:59)
[2017-09-18 20:00] VITALS: BP 136/96
[2017-09-18] MEDS: FLUCONAZOLE (100 MG) 100 MG TABLET PO SCH (20:06)
[2017-09-18] MEDS: ENOXAPARIN SODIUM 40 MG/0.4 ML DISP.SYRIN SQ SCH (20:07)
--- NOTE | 2017-09-18 20:51 | NUR ---
received pt from day shift, alert, follows commands, ST, on 2L NC sat well, lung partially congested, no edema, quadriplegic, GT to feeding tolerates well, f/c OK output, v/s stable, no pain, pt turned and repositioned.
[2017-09-18] MEDS: INSULIN GLARGINE, 100 UNIT/ML CARTRIDGE SQ SCH (23:01)
[2017-09-19] VITALS: BP 144/87
--- NOTE | 2017-09-19 00:43 | NUR ---
pt is resting in the bed, v/s stable, no pain, pt turned and repositioned q2hrs.
[2017-09-19] MEDS: VANCOMYCIN 500 MG in IV D5W 100 ML IV SCH ×2 (01:06→12:56)
[2017-09-19] MEDS: IPRATROPIUM NEB FS 0.5 MG/2.5 ML AMPUL.NEB NEB SCH ×6 (03:30→23:34)
[2017-09-19] MEDS: ALBUTEROL FS 2.5 MG/0.5 ML VIAL.NEB NEB SCH ×6 (03:30→23:33)
[2017-09-19 04:00] VITALS: BP 132/87
--- NOTE | 2017-09-19 04:07 | NUR ---
pt is resting in the bed, no acute distress overnight, v/s stable, no pain, tolerates feeding, pt cleaned, changed and repositioned q2hrs.
[2017-09-19] MEDS: IV NS 0.9% 1,000 ML IV SCH (04:16)
[2017-09-19] MEDS: BLOOD SUGAR DIAGNOSTIC 1 EACH STRIP IN SCH ×3 (06:04→17:58)
[2017-09-19] MEDS: MORPHINE SULFATE INJ 4 MG/ML DISP.SYRIN IV PRN ×2 (06:14→22:51)
[2017-09-19 06:33] LABS: CALCIUM, SERUM 9.3 mg/dL (8.5-10.1); CREATININE 0.8 mg/dL (0.6-1.3); POTASSIUM 3.8 mmol/L (3.5-5.1)
[2017-09-19] MEDS: ACETYLCYSTEINE 10% SOLN 400 MG/4 ML VIAL NEB SCH ×3 (07:48→23:34)
[2017-09-19 08:00] VITALS: BP 129/77
[2017-09-19] MEDS: CEFEPIME 1 GM in IV D5W 50 ML IV SCH (08:28)
[2017-09-19] MEDS: FLUTICASONE/VILANTEROL 1 EACH BLST.W.DEV IH SCH (08:28)
[2017-09-19] MEDS: VIT B CMPLX 3/FA/VIT C/BIOTIN 1 TAB TABLET GT SCH (08:29)
[2017-09-19] MEDS: LACTOBACILLUS RHAMNOSUS GG 1 EACH CAP.SPRINK GT SCH ×2 (08:29→16:57)
[2017-09-19] MEDS: PANTOPRAZOLE 40 MG VIAL IV SCH (08:29)
[2017-09-19] MEDS: ASPIRIN 81 MG TAB.CHEW PO SCH (08:29)
[2017-09-19] MEDS: ASCORBIC ACID 500 MG TABLET GT SCH (08:29)
[2017-09-19] MEDS: HYDROCHLOROTHIAZIDE 25 MG TABLET GT SCH (08:29)
[2017-09-19] MEDS: MULTIVITAMINS,THERAGRAN 1 UDTAB TABLET GT SCH (08:30)
[2017-09-19] MEDS: DAKINS QUARTER STRENGTH (0.125%) 480 ML BOTTLE TOP SCH (09:44)
[2017-09-19] MEDS: Z GUARD REMEDY 2 OZ OINT TP SCH (09:44)
[2017-09-19] MEDS: NYSTATIN TOP POWDER 15 GM BOTTLE TP SCH ×2 (09:47→16:58)
[2017-09-19] MEDS: INSULIN REGULAR, HUMAN 100 UNIT/ML 3 ML VIAL SQ PRN ×2 (11:31→18:00)
[2017-09-19 12:00] VITALS: BP 156/90
--- NOTE | 2017-09-19 13:00 | NUR ---
RN NOTES: Pt seen & examined by Cristian PERSAUD. Per ASSOCIATE FINANCIAL REPRESENTATIVE to keep pt in the hospital for now d/t Pseudomonas (sputum). ASSOCIATE FINANCIAL REPRESENTATIVE to talk to ID re: Abx adjustments.
[2017-09-19 13:08] LABS: BASOPHILS # (AUTO) 0.1 /CMM (0.0-0.2); BASOPHILS % (AUTO) 0.8 % (0.0-2.0); EOSINOPHILS % (AUTO) 0.4 % (0.0-6.0); HEMATOCRIT 35 % (39-51); HEMOGLOBIN 11.4 g/dL (13.5-17.5); LYMPHOCYTES # (AUTO) 1.7 /CMM (0.8-4.8); LYMPHOCYTES % (AUTO) 19.9 % (20.0-44.0); MEAN CORPUSCULAR HGB CONC 33 g/dl (31.0-36.0); MEAN CORPUSCULAR VOLUME 81 fL (80-96); MONOCYTES # (AUTO) 0.6 /CMM (0.1-1.30); MONOCYTES % (AUTO) 6.9 % (2.0-12.0); NEUTROPHILS # (AUTO) 6.2 /CMM (1.8-8.9); PLATELET COUNT (AUTO) 423 /CMM (150-450); RDW COEFFICIENT OF VARIATION 16.7 (11.5-15.0); WHITE BLOOD COUNT (AUTO) 8.6 K/uL (4.3-11.0)
[2017-09-19 16:00] VITALS: BP 129/77
[2017-09-19] MEDS: LIDOCAINE 5% (PATCH) 1 EA PATCH TP SCH (16:57)
[2017-09-19] MEDS ORDERED: FEE PK DOSING 1 MIN EA MC ONE (18:44)
--- NOTE | 2017-09-19 19:00 | NUR ---
RN CLOSING NOTES RN [facility] OPENING NOTES RECEIVED PT IN BED, ALERT, RESTING COMFORTABLY, NO SIGNS OF RESPIRATORY DISTRESS, NO C/O PAIN, WITH ONGOING GT FEEDING GLUCERNA AT 65 ML/HR, GT PATENT AND INTACT, NO RESIDUE NOTED, WITH FC INTACT AND DRAINING BY GRAVITY YELLOW, CLOUDY URINE, WITH ONGOING IVF OF NS AT 50 ML/HR ON MALIHA PICC, PICC LINE PATENT AND INTACT, BED IN LOW AND LOCKED POSITION, FALL AND SAFETY PRECAUTION OBSERVED, ASPIRATION PRECAUTION MAINTAINED, WILL CONTINUE TO MONITOR
--- NOTE | 2017-09-19 19:00 | NUR ---
JULIANA MS BRANDT PETE PT IN BED, ALERT, NO ACUTE CHANGES NOTED, NO C/O PAIN, STILL WITH ONGOING GT FEEDING GLUCERNA AT 65 ML/HR, KEPT GT PATENT AND INTACT, KEPT FC INTACT AND DRAINING BY GRAVITY, STILL WITH ONGOING IVF OF NS AT 50 ML/HR ON MALIHA PICC, KEPT PICC LINE PATENT AND INTACT, BED IN LOW AND LOCKED POSITION, FALL AND SAFETY PRECAUTION OBSERVED AT ALL TIMES, ENDORSED TO BEEF SKINNER NURSE Addendum: 09/19/17 at 1935 by MAMIE GUTIERREZ RN Addendum: Pt seen & examined by Bouchra SAMAYOA & updated about pt condition.
[2017-09-19 20:00] VITALS: BP 148/87
--- NOTE | 2017-09-19 20:00 | NUR ---
RN MS INITIAL NOTES RECEIVED PT IN BED, ALERT, RESTING COMFORTABLY, NO SIGNS OF RESPIRATORY DISTRESS, NO C/O PAIN, WITH ONGOING GT FEEDING GLUCERNA AT 65 ML/HR, GT PATENT AND INTACT, NO RESIDUE NOTED, WITH FC INTACT AND DRAINING BY GRAVITY YELLOW, CLOUDY URINE, WITH ONGOING IVF OF NS AT 50 ML/HR ON MALIHA PICC, PICC LINE PATENT AND INTACT, BED IN LOW AND LOCKED POSITION, FALL AND SAFETY PRECAUTION OBSERVED, ASPIRATION PRECAUTION MAINTAINED, WILL CONTINUE TO MONITOR
[2017-09-19] MEDS: DOXYCYCLINE HYCLATE (100 MG) 100 MG TABLET PO SCH (20:37)
[2017-09-19] MEDS: FLUCONAZOLE (100 MG) 100 MG TABLET PO SCH (20:37)
[2017-09-19] MEDS: ENOXAPARIN SODIUM 40 MG/0.4 ML DISP.SYRIN SQ SCH (20:38)
[2017-09-19] MEDS: TOBRAMYCIN IV SCH (20:56)
[2017-09-19] MEDS: D5W IV SCH (20:56)
[2017-09-19] MEDS ORDERED: VORICONAZOLE 200 MG TABLET PO SCH (21:00)
[2017-09-19] MEDS: INSULIN GLARGINE, 100 UNIT/ML CARTRIDGE SQ SCH (22:03)
[2017-09-19] MEDS: GLUCERNA 1.2 1,000 ML BOTTLE NG PRN (22:04)
[2017-09-20] VITALS (7 sets, daily range): BP systolic 141–165; BP diastolic 82–94
[2017-09-20] MEDS: BLOOD SUGAR DIAGNOSTIC 1 EACH STRIP IN SCH ×4 (00:07→16:31)
[2017-09-20] MEDS: INSULIN REGULAR, HUMAN 100 UNIT/ML 3 ML VIAL SQ PRN ×3 (00:15→12:33)
[2017-09-20] MEDS: IV NS 0.9% 1,000 ML IV SCH ×2 (01:21→16:38)
[2017-09-20] MEDS: IPRATROPIUM NEB FS 0.5 MG/2.5 ML AMPUL.NEB NEB SCH ×6 (03:30→23:09)
[2017-09-20] MEDS: ALBUTEROL FS 2.5 MG/0.5 ML VIAL.NEB NEB SCH ×6 (03:30→23:09)
--- NOTE | 2017-09-20 06:21 | NUR ---
RN MS CLOSING NOTES ENDORSED PT IN BED, ALERT, RESTING COMFORTABLY, NO SIGNS OF RESPIRATORY DISTRESS, NO C/O PAIN, WITH ONGOING GT FEEDING GLUCERNA AT 65 ML/HR, GT PATENT AND INTACT, NO RESIDUE NOTED, WITH FC INTACT AND DRAINING BY GRAVITY YELLOW, CLOUDY URINE, WITH ONGOING IVF OF NS AT 50 ML/HR ON MALIHA PICC, PICC LINE PATENT AND INTACT, BED IN LOW AND LOCKED POSITION, FALL AND SAFETY PRECAUTION OBSERVED, ASPIRATION PRECAUTION MAINTAINED, WILL CONTINUE TO MONITOR
[2017-09-20 07:01] LABS: CALCIUM, SERUM 9.4 mg/dL (8.5-10.1); CREATININE 0.8 mg/dL (0.6-1.3); POTASSIUM 4.5 mmol/L (3.5-5.1)
--- NOTE | 2017-09-20 07:20 | NUR ---
RN OPEN NOTES RECEIVE BEDSIDE REPORT FROM BEVELING MACHINE OPERATOR RN. PATIENT IS IN BED. ALERT AND ORIENTED TO NAME AND PLACE. NO SIGNS AND SYMPTOMS OF DISTRESS. DENIED PAIN. BED IS AT LOWEST POSITION, LOCKED AND TWO SIDE RAILS ARE UP FOR SAFETY. CALL LIGHT WITHIN REACH FOR SAFETY. WILL CONTINUE TO MONITOR PATIENT
[2017-09-20] MEDS: ACETYLCYSTEINE 10% SOLN 400 MG/4 ML VIAL NEB SCH ×3 (07:30→23:09)
--- NOTE | 2017-09-20 08:07 | NUR ---
LAB CALLED AT 08:01AM TO REPORT TROUGH VALUE OF TOBRAMYCIN OF 4.6. PHARMACY NOTIFIED AND WILL ADJUST
[2017-09-20] MEDS: FLUTICASONE/VILANTEROL 1 EACH BLST.W.DEV IH SCH (08:32)
[2017-09-20] MEDS: LACTOBACILLUS RHAMNOSUS GG 1 EACH CAP.SPRINK GT SCH ×2 (08:33→16:31)
[2017-09-20] MEDS: DOXYCYCLINE HYCLATE (100 MG) 100 MG TABLET PO SCH ×2 (08:34→21:09)
[2017-09-20] MEDS: VIT B CMPLX 3/FA/VIT C/BIOTIN 1 TAB TABLET GT SCH (08:34)
[2017-09-20] MEDS: ASPIRIN 81 MG TAB.CHEW PO SCH (08:34)
[2017-09-20] MEDS: MULTIVITAMINS,THERAGRAN 1 UDTAB TABLET GT SCH (08:34)
[2017-09-20] MEDS: ASCORBIC ACID 500 MG TABLET GT SCH (08:34)
[2017-09-20] MEDS: HYDROCHLOROTHIAZIDE 25 MG TABLET GT SCH (08:35)
[2017-09-20] MEDS: PANTOPRAZOLE 40 MG VIAL IV SCH (08:36)
[2017-09-20] MEDS: NYSTATIN TOP POWDER 15 GM BOTTLE TP SCH ×2 (08:37→16:32)
[2017-09-20] MEDS: Z GUARD REMEDY 2 OZ OINT TP SCH (08:37)
[2017-09-20] MEDS: FLUCONAZOLE (100 MG) 100 MG TABLET PO SCH (08:41)
[2017-09-20] MEDS: MORPHINE SULFATE INJ 4 MG/ML DISP.SYRIN IV PRN ×2 (10:12→14:48)
[2017-09-20 14:07] LABS: BASOPHILS % (AUTO) 0.3 % (0.0-2.0); EOSINOPHILS % (AUTO) 0.9 % (0.0-6.0); HEMATOCRIT 37 % (39-51); HEMOGLOBIN 11.9 g/dL (13.5-17.5); LYMPHOCYTES # (AUTO) 1.9 /CMM (0.8-4.8); LYMPHOCYTES % (AUTO) 18.8 % (20.0-44.0); MEAN CORPUSCULAR HGB CONC 32 g/dl (31.0-36.0); MEAN CORPUSCULAR VOLUME 82 fL (80-96); MONOCYTES # (AUTO) 0.7 /CMM (0.1-1.30); MONOCYTES % (AUTO) 7.2 % (2.0-12.0); NEUTROPHILS # (AUTO) 7.3 /CMM (1.8-8.9); NEUTROPHILS % (AUTO) 72.8 % (43.0-81.0); PLATELET COUNT (AUTO) 456 /CMM (150-450); RDW COEFFICIENT OF VARIATION 17.1 (11.5-15.0); RED BLOOD CELL COUNT(AUTO) 4.52 MIL/uL (4.5-6.0); WHITE BLOOD COUNT (AUTO) 10.1 K/uL (4.3-11.0)
--- NOTE | 2017-09-20 16:00 | NUR ---
DRESSING CHANGE COMPLETED PER CASTING DIRECTOR AND HOSPITAL POLICY.
[2017-09-20] MEDS: LIDOCAINE 5% (PATCH) 1 EA PATCH TP SCH (16:31)
--- NOTE | 2017-09-20 20:00 | NUR ---
RN OPEN NOTES RECEIVE BEDSIDE REPORT FROM AM SHIFT RN. PATIENT IS IN BED. ALERT AND ORIENTED TO NAME AND PLACE. NO SIGNS AND SYMPTOMS OF DISTRESS. DENIED PAIN. BED IS AT LOWEST POSITION, LOCKED AND TWO SIDE RAILS ARE UP FOR SAFETY. CALL LIGHT WITHIN REACH FOR SAFETY. WILL CONTINUE TO MONITOR PATIENT
[2017-09-20] MEDS: TOBRAMYCIN IV SCH (21:09)
[2017-09-20] MEDS: D5W IV SCH (21:09)
[2017-09-20] MEDS: ENOXAPARIN SODIUM 40 MG/0.4 ML DISP.SYRIN SQ SCH (21:10)
[2017-09-20] MEDS: INSULIN GLARGINE, 100 UNIT/ML CARTRIDGE SQ SCH (21:19)
[2017-09-20] MEDS: GLUCERNA 1.2 1,000 ML BOTTLE NG PRN (21:22)
[2017-09-21] VITALS (7 sets, daily range): BP systolic 128–168; BP diastolic 69–93
[2017-09-21] MEDS: BLOOD SUGAR DIAGNOSTIC 1 EACH STRIP IN SCH ×5 (00:44→23:17)
[2017-09-21] MEDS: INSULIN REGULAR, HUMAN 100 UNIT/ML 3 ML VIAL SQ PRN ×4 (01:03→23:18)
[2017-09-21] MEDS: IPRATROPIUM NEB FS 0.5 MG/2.5 ML AMPUL.NEB NEB SCH ×6 (02:49→23:30)
[2017-09-21] MEDS: ALBUTEROL FS 2.5 MG/0.5 ML VIAL.NEB NEB SCH ×5 (02:49→23:30)
[2017-09-21 06:18] LABS: BASOPHILS % (AUTO) 0.3 % (0.0-2.0); EOSINOPHILS % (AUTO) 1.3 % (0.0-6.0); HEMATOCRIT 36 % (39-51); LYMPHOCYTES # (AUTO) 2.1 /CMM (0.8-4.8); LYMPHOCYTES % (AUTO) 19.5 % (20.0-44.0); MEAN CORPUSCULAR HGB CONC 33 g/dl (31.0-36.0); MEAN CORPUSCULAR VOLUME 80 fL (80-96); MONOCYTES # (AUTO) 0.8 /CMM (0.1-1.30); MONOCYTES % (AUTO) 7.4 % (2.0-12.0); NEUTROPHILS # (AUTO) 7.6 /CMM (1.8-8.9); NEUTROPHILS % (AUTO) 71.5 % (43.0-81.0); PLATELET COUNT (AUTO) 442 /CMM (150-450); RDW COEFFICIENT OF VARIATION 16.6 (11.5-15.0); RED BLOOD CELL COUNT(AUTO) 4.52 MIL/uL (4.5-6.0); WHITE BLOOD COUNT (AUTO) 10.7 K/uL (4.3-11.0)
[2017-09-21 06:31] LABS: CALCIUM, SERUM 9.4 mg/dL (8.5-10.1); CREATININE 0.7 mg/dL (0.6-1.3); POTASSIUM 4.5 mmol/L (3.5-5.1)
--- NOTE | 2017-09-21 06:53 | NUR ---
RN CLOSING NOTES ENDORSED BEDSIDE REPORT TO AM SHIFT RN. PATIENT IS IN BED. ALERT AND ORIENTED TO NAME AND PLACE. NO SIGNS AND SYMPTOMS OF DISTRESS. DENIED PAIN. BED IS AT LOWEST POSITION, LOCKED AND TWO SIDE RAILS ARE UP FOR SAFETY. CALL LIGHT WITHIN REACH FOR SAFETY. WILL CONTINUE TO MONITOR PATIENT
[2017-09-21] MEDS: ACETYLCYSTEINE 10% SOLN 400 MG/4 ML VIAL NEB SCH ×3 (07:58→23:30)
--- NOTE | 2017-09-21 08:00 | NUR ---
MS1/RN AM SHIFT INITIAL NOTES RECEIVED PT ASLEEP IN BED, A/O X 2 WITH EPISODES OF CONFUSION, DENIES SYMPTOMS, NO DISTRESS NOTED. ON 2L O2 VIA N/C SATURATING @ 98% LUNG SOUND DIMINISHED. GTF ON GOING @ 65CC/HR, FLUSHED, PATENT, NO GASTRIC RESIDUAL NOTED. WITH ON GOING IV INFUSION OF NS @ 50CC/HR, PATENT, POSITIVE WITH BLOOD RETURN. RENNER CATHETER INTACT WITH YELLOW URINE OUTPUT. PT IS COMFORTABLE, SCHEDULED AM MEDS TO BE GIVEN. CL WITHIN REACHED AND SAFETY MAINTAINED. ON GOING MONITORING.
[2017-09-21] MEDS: PANTOPRAZOLE 40 MG VIAL IV SCH (09:18)
[2017-09-21] MEDS: FLUTICASONE/VILANTEROL 1 EACH BLST.W.DEV IH SCH (09:18)
[2017-09-21] MEDS: MULTIVITAMINS,THERAGRAN 1 UDTAB TABLET GT SCH (09:19)
[2017-09-21] MEDS: VIT B CMPLX 3/FA/VIT C/BIOTIN 1 TAB TABLET GT SCH (09:19)
[2017-09-21] MEDS: FLUCONAZOLE (100 MG) 100 MG TABLET PO SCH (09:20)
[2017-09-21] MEDS: HYDROCHLOROTHIAZIDE 25 MG TABLET GT SCH (09:20)
[2017-09-21] MEDS: DOXYCYCLINE HYCLATE (100 MG) 100 MG TABLET PO SCH ×2 (09:20→20:24)
[2017-09-21] MEDS: LACTOBACILLUS RHAMNOSUS GG 1 EACH CAP.SPRINK GT SCH ×2 (09:20→16:24)
[2017-09-21] MEDS: ASCORBIC ACID 500 MG TABLET GT SCH (09:20)
[2017-09-21] MEDS: ASPIRIN 81 MG TAB.CHEW PO SCH (09:21)
[2017-09-21] MEDS: DAKINS HALF STRENGTH (0.25%) 480 ML BOTTLE TOP SCH (09:22)
[2017-09-21] MEDS: Z GUARD REMEDY 2 OZ OINT TP SCH (09:23)
[2017-09-21] MEDS: NYSTATIN TOP POWDER 15 GM BOTTLE TP SCH ×2 (09:23→16:24)
--- NOTE | 2017-09-21 12:00 | NUR ---
MS1/RN NOON ROUNDS NO ACUTE CHANGE OF CONDITION. MONITORING CONTINUED.
[2017-09-21] MEDS: IV NS 0.9% 1,000 ML IV SCH (12:35)
[2017-09-21] MEDS: GLUCERNA 1.2 1,000 ML BOTTLE NG PRN (13:59)
[2017-09-21] MEDS: LIDOCAINE 5% (PATCH) 1 EA PATCH TP SCH (16:24)
--- NOTE | 2017-09-21 17:30 | NUR ---
MS1/RN AFTERNOON ROUNDS PM CARE PROVIDED. NO CHANGE OF CONDITION. ON GOING MONITORING.
[2017-09-21] MEDS: MORPHINE SULFATE INJ 4 MG/ML DISP.SYRIN IV PRN ×2 (18:19→23:19)
--- NOTE | 2017-09-21 19:28 | NUR ---
MS1/RN AM SHIFT END NOTES ALL NEEDS MET. NO ACUTE CHANGE OF CONDITION NOTED DURING THE SHIFT. PT ENDORSED TO PM NURSE TO CONTINUE CARE. CL WITHIN REACHED AND SAFETY MAINTAINED.
--- NOTE | 2017-09-21 19:53 | NUR ---
RN INITIAL NOTES: RECEIVED REPORT FROM THEO ANDREWS, PT IN BED, AWAKE, A/O X1-2 ON 2L OXYGEN VIA NC, RESPIRATION EVEN AND UNLBAORED, PT ALWAYS CALLING HELP AND WHINING, WHEN ASKED PT WHAT KIND OF HELP HE NEEDS, PT STATED "IM JUST WHINING, I CANT HELP IT". PT HAS MALIHA PICC LINE WITH TLC, PATENT AND FLUSHING WELL, INFUSING WITH NS AT 50ML/HR. ALSO HAS GTUBE IN PLACED, ABDOMEN SOFT TO TOUCH WITH ACTIVE BOWEL SOUND NOTED UPON AUSCULTATION, RECEIVING GLUCERNA AT 65ML/HR. BLE OFFLOADED. S/P SACRAL WOUND DEBRIDEMENT ON 09/[address] MACKEY. SAFETY PRECAUTIONS FOR FALL INITIATED, CALL LIGHT IN REACH. PT'S PHONE STRAPPED IN THE BED. WILL CONTINUE MONITORING PT.
[2017-09-21] MEDS: D5W IV SCH (20:24)
[2017-09-21] MEDS: TOBRAMYCIN IV SCH (20:24)
[2017-09-21] MEDS: ENOXAPARIN SODIUM 40 MG/0.4 ML DISP.SYRIN SQ SCH (20:25)
--- NOTE | 2017-09-21 20:30 | NUR ---
RN NOTES: KEPT HOB TO 45 DEGREE'S ORDERED, TO PREVENT ASPIRATION.
[2017-09-21] MEDS: INSULIN GLARGINE, 100 UNIT/ML CARTRIDGE SQ SCH (21:32)
--- NOTE | 2017-09-21 21:32 | NUR ---
BS 164: BS 164, 10UNITS OF LANTUS ADMINISTERED ORDERED, PT ON GTUBE FEEDING RECEIVING GLUCERNA @ 65ML/HR
--- NOTE | 2017-09-21 23:20 | NUR ---
PRN MORPHINE: PT MOANING YELLING FOR HELP, ASKED WHAT KIND OF HELP HE NEEDS, HE STATED HE IS IN PAIN, WHEN ASKED WHICH BODY PART PT CLAIMED "EVERTHING HURTS", PS 12/06 PRN MORPHINE 1MG IVP ADMINISTERED TO THE PT AT THIS TIME.
--- NOTE | 2017-09-21 23:21 | NUR ---
BS 150: PT'S BS 150, 2UNITS OF INSULIN GIVEN PER SLIDING SCALE, PT ON GTUBE FEEDING RECEIVING GLUCERNA 1.2 AT 65ML/HR, TOLERATED WELL BY PT.
[2017-09-22] VITALS: BP 146/90
[2017-09-22] MEDS: IPRATROPIUM NEB FS 0.5 MG/2.5 ML AMPUL.NEB NEB SCH ×6 (03:30→23:54)
[2017-09-22] MEDS: ALBUTEROL FS 2.5 MG/0.5 ML VIAL.NEB NEB SCH ×6 (03:30→23:54)
[2017-09-22 04:00] VITALS: BP 140/85
[2017-09-22] MEDS: GLUCERNA 1.2 1,000 ML BOTTLE NG PRN ×2 (04:55→23:05)
[2017-09-22] MEDS: MORPHINE SULFATE INJ 4 MG/ML DISP.SYRIN IV PRN (05:01)
--- NOTE | 2017-09-22 05:03 | NUR ---
BS 130: BS 130, NO INSULIN COVERAGE GIVEN PER SLIDING SCALE.
--- NOTE | 2017-09-22 05:04 | NUR ---
PRN MORPHINE: PT AWAKE, C/O BACKA ND SHOULDER PAIN, 12/06 PRN MORPHINE 1MG IVP ADMINISTERE TO THE PT AT THIS TIME, WILL CONTINUE TO MONITOR AND REASSESS
[2017-09-22] MEDS: BLOOD SUGAR DIAGNOSTIC 1 EACH STRIP IN SCH ×3 (05:05→17:31)
[2017-09-22] MEDS: INSULIN REGULAR, HUMAN 100 UNIT/ML 3 ML VIAL SQ PRN ×3 (05:05→17:34)
[2017-09-22] MEDS: IV NS 0.9% 1,000 ML IV SCH (05:05)
[2017-09-22 06:23] LABS: CALCIUM, SERUM 9.4 mg/dL (8.5-10.1); CREATININE 0.7 mg/dL (0.6-1.3); POTASSIUM 4.9 mmol/L (3.5-5.1)
--- NOTE | 2017-09-22 06:52 | NUR ---
RN CLOSING NOTES: PT IN BED, REMAINS A/O X1-2 ON 2L OXYGEN VIA NC, RESPIRATION EVEN AND UNLABORED. MALIHA PICC LINE REMAINS PATENT AND FLUSHING WELL, WITH GOOD BLOOD RETURN NOTED, INFUSING WITH NS AT 50ML/HR. RENNER CATHETER REMAINS IN PLACED, BAG EMPTIED BY LEGAL OFFICE ADMINISTRATOR. G-TUBE REMAINS INFUSING WITH GLUCERNA AT 65ML/HR. BLE KEPT OFFLOADED. PT'S PHONE REMAINS STRAP AT BED SIDE. VS REMAINS STABLE, NEEDS ATTENDED. SAFETY PRECAUTIONS FOR FALL REMAINS ENGAGED, CALL LIGHT IN REACH, WILL ENDORSE TO DAY RN FOR ARIADNE.
[2017-09-22] MEDS: ACETYLCYSTEINE 10% SOLN 400 MG/4 ML VIAL NEB SCH ×3 (07:24→23:54)
[2017-09-22 08:00] VITALS: BP 147/84
--- NOTE | 2017-09-22 08:00 | NUR ---
MS1/RN AM SHIFT INITIAL NOTES RECEIVED PT AWAKE IN BED, A/O X 2 WITH EPISODES OF CONFUSION, NO DISTRESS NOTED. ON 2L O2 VIA N/C SATURATING @ 98% LUNG SOUND DIMINISHED. GTF ON GOING @ 65CC/HR, FLUSHED, PATENT, NO GASTRIC RESIDUAL NOTED. WITH ON GOING IV INFUSION OF NS @ 50CC/HR, PATENT, POSITIVE WITH BLOOD RETURN. RENNER CATHETER INTACT WITH YELLOW URINE OUTPUT. PT IS COMFORTABLE, SCHEDULED AM MEDS TO BE GIVEN. CL WITHIN REACHED AND SAFETY MAINTAINED. ON GOING MONITORING.
[2017-09-22] MEDS: FLUTICASONE/VILANTEROL 1 EACH BLST.W.DEV IH SCH (08:02)
[2017-09-22] MEDS: VIT B CMPLX 3/FA/VIT C/BIOTIN 1 TAB TABLET GT SCH (08:03)
[2017-09-22] MEDS: HYDROCHLOROTHIAZIDE 25 MG TABLET GT SCH (08:03)
[2017-09-22] MEDS: PROSOURCE / PROSTAT (PYXIS) 30 ML UDC GT SCH (08:03)
[2017-09-22] MEDS: PANTOPRAZOLE 40 MG VIAL IV SCH (08:03)
[2017-09-22] MEDS: FLUCONAZOLE (100 MG) 100 MG TABLET PO SCH (08:03)
[2017-09-22] MEDS: LACTOBACILLUS RHAMNOSUS GG 1 EACH CAP.SPRINK GT SCH ×2 (08:03→16:36)
[2017-09-22] MEDS: DOXYCYCLINE HYCLATE (100 MG) 100 MG TABLET PO SCH ×2 (08:03→21:39)
[2017-09-22] MEDS: MULTIVITAMINS,THERAGRAN 1 UDTAB TABLET GT SCH (08:03)
[2017-09-22] MEDS: ASPIRIN 81 MG TAB.CHEW PO SCH (08:04)
[2017-09-22] MEDS: ASCORBIC ACID 500 MG TABLET GT SCH (08:04)
[2017-09-22] MEDS: DAKINS HALF STRENGTH (0.25%) 480 ML BOTTLE TOP SCH (08:04)
[2017-09-22] MEDS: Z GUARD REMEDY 2 OZ OINT TP SCH (08:05)
[2017-09-22] MEDS: NYSTATIN TOP POWDER 15 GM BOTTLE TP SCH ×2 (08:05→16:36)
[2017-09-22 14:14] LABS: BASOPHILS % (AUTO) 0.4 % (0.0-2.0); EOSINOPHILS % (AUTO) 1.7 % (0.0-6.0); HEMATOCRIT 36 % (39-51); HEMOGLOBIN 11.6 g/dL (13.5-17.5); LYMPHOCYTES % (AUTO) 18.7 % (20.0-44.0); MEAN CORPUSCULAR HGB CONC 33 g/dl (31.0-36.0); MEAN CORPUSCULAR VOLUME 81 fL (80-96); MONOCYTES # (AUTO) 0.7 /CMM (0.1-1.30); MONOCYTES % (AUTO) 6.6 % (2.0-12.0); NEUTROPHILS # (AUTO) 7.8 /CMM (1.8-8.9); NEUTROPHILS % (AUTO) 72.6 % (43.0-81.0); PLATELET COUNT (AUTO) 389 /CMM (150-450); RED BLOOD CELL COUNT(AUTO) 4.42 MIL/uL (4.5-6.0); WHITE BLOOD COUNT (AUTO) 10.8 K/uL (4.3-11.0)
[2017-09-22] MEDS ORDERED: MORPHINE SULFATE INJ 2 MG/ML DISP.SYRIN IV ONE (14:30)
--- NOTE | 2017-09-22 14:43 | NUR ---
MS 1 NURSE, seen by and orders noted, medicated with morphine 2mg ivp one time order give slowly as ordered will continue to assess and evaluate patient encouraged use of call light to make all needs known call light with in reach
[2017-09-22 16:00] VITALS: BP 143/74
[2017-09-22] MEDS: LIDOCAINE 5% (PATCH) 1 EA PATCH TP SCH (16:36)
--- NOTE | 2017-09-22 17:00 | NUR ---
MS1/RN AFTERNOON ROUNDS PM CARE PROVIDED, NO ACUTE CHANGE OF CONDITION. MONITORING CONTINUED.
[2017-09-22] MEDS ORDERED: HYDROMORPHONE INJ 0.5 MG/0.5 ML SYRINGE IV PRN (19:00)
[2017-09-22 20:00] VITALS: BP 169/97
--- NOTE | 2017-09-22 20:00 | NUR ---
RN INITIAL NOTES: RECEIVED PT IN BED, AWAKE, A/O X1-2 ON 2L OXYGEN VIA NC, RESPIRATION EVEN AND UNLABORED, PT HAS MALIHA PICC LINE WITH TLC, PATENT AND FLUSHING WELL, INFUSING WITH NS AT 50ML/HR. ALSO HAS GTUBE IN PLACED, ABDOMEN SOFT TO TOUCH WITH ACTIVE BOWEL SOUND NOTED UPON AUSCULTATION, RECEIVING GLUCERNA AT 65ML/HR. BLE OFFLOADED. S/P SACRAL WOUND DEBRIDEMENT ON 09/[address] MACKEY. SAFETY PRECAUTIONS FOR FALL INITIATED, CALL LIGHT IN REACH. PT'S PHONE STRAPPED IN THE BED. WILL CONTINUE MONITORING PT.
[2017-09-22] MEDS: TOBRAMYCIN IV SCH (21:39)
[2017-09-22] MEDS: D5W IV SCH (21:39)
[2017-09-22] MEDS: ENOXAPARIN SODIUM 40 MG/0.4 ML DISP.SYRIN SQ SCH (21:39)
[2017-09-22] MEDS: INSULIN GLARGINE, 100 UNIT/ML CARTRIDGE SQ SCH (21:44)
[2017-09-23] VITALS: BP 169/97
[2017-09-23] MEDS: BLOOD SUGAR DIAGNOSTIC 1 EACH STRIP IN SCH ×2 (00:14→06:23)
[2017-09-23] MEDS: IV NS 0.9% 1,000 ML IV SCH (00:17)
[2017-09-23] MEDS: INSULIN REGULAR, HUMAN 100 UNIT/ML 3 ML VIAL SQ PRN ×2 (00:18→06:28)
[2017-09-23] MEDS: IPRATROPIUM NEB FS 0.5 MG/2.5 ML AMPUL.NEB NEB SCH ×3 (03:53→11:21)
[2017-09-23] MEDS: ALBUTEROL FS 2.5 MG/0.5 ML VIAL.NEB NEB SCH ×3 (03:54→11:21)
[2017-09-23 04:00] VITALS: BP 153/93
[2017-09-23] MEDS: MORPHINE SULFATE INJ 4 MG/ML DISP.SYRIN IV PRN ×2 (04:00→09:44)
--- NOTE | 2017-09-23 06:52 | NUR ---
RN CLOSING NOTES: PT IN BED, REMAINS A/O X1-2 ON 2L OXYGEN VIA NC, RESPIRATION EVEN AND UNLABORED. MALIHA PICC LINE REMAINS PATENT AND FLUSHING WELL, WITH GOOD BLOOD RETURN NOTED, INFUSING WITH NS AT 50ML/HR. RENNER CATHETER REMAINS IN PLACED, BAG EMPTIED BY DIETARY SERVICE AIDE. G-TUBE REMAINS INFUSING WITH GLUCERNA AT 65ML/HR. BLE KEPT OFFLOADED. PT'S PHONE REMAINS STRAP AT BED SIDE. VS REMAINS STABLE, NEEDS ATTENDED. SAFETY PRECAUTIONS FOR FALL REMAINS ENGAGED, CALL LIGHT IN REACH, WILL ENDORSE TO DAY RN FOR ARIADNE.
--- NOTE | 2017-09-23 07:25 | NUR ---
RN OPENING NOTES: RECEIVED PT IN BED, AWAKE, A/O X1-2 ON 2L OXYGEN VIA NC, NO DISTRESS NOTED, PT HAS MALIHA PICC LINE WITH TLC, INFUSING NS AT 50ML/HR. GTUBE IN PLACE WITGH GLUCERNA 65ML/HR, ABDOMEN SOFT TO TOUCH WITH ACTIVE BOWEL SOUND NOTED UPON AUSCULTATION, RECEIVING GLUCERNA AT 65ML/HR. BLE OFFLOADED. S/P SACRAL WOUND DEBRIDEMENT ON 09/[address] MACKEY. SAFETY PRECAUTIONS FOR FALL INITIATED, CALL LIGHT IN REACH. PT'S PHONE STRAPPED IN THE BED. WILL CONTINUE MONITORING PT.
[2017-09-23] MEDS: ACETYLCYSTEINE 10% SOLN 400 MG/4 ML VIAL NEB SCH (07:35)
--- NOTE | 2017-09-23 07:55 | NUR ---
RT PATIENT AWAKE, ALERT, ZERO SOB. REFUSED HHN TX. B/S DIM. JULIANA RODRIGUEZ AWARE
[2017-09-23 08:00] VITALS: BP 146/86
[2017-09-23] MEDS: FLUTICASONE/VILANTEROL 1 EACH BLST.W.DEV IH SCH (08:17)
[2017-09-23] MEDS: DOXYCYCLINE HYCLATE (100 MG) 100 MG TABLET PO SCH (08:19)
[2017-09-23] MEDS: VIT B CMPLX 3/FA/VIT C/BIOTIN 1 TAB TABLET GT SCH (08:19)
[2017-09-23] MEDS: ASCORBIC ACID 500 MG TABLET GT SCH (08:19)
[2017-09-23] MEDS: LACTOBACILLUS RHAMNOSUS GG 1 EACH CAP.SPRINK GT SCH (08:19)
[2017-09-23 08:20] VITALS: BP 146/86
[2017-09-23] MEDS: ASPIRIN 81 MG TAB.CHEW PO SCH (08:20)
[2017-09-23] MEDS: HYDROCHLOROTHIAZIDE 25 MG TABLET GT SCH (08:20)
[2017-09-23] MEDS: FLUCONAZOLE (100 MG) 100 MG TABLET PO SCH (08:20)
[2017-09-23] MEDS: PANTOPRAZOLE 40 MG VIAL IV SCH (08:20)
[2017-09-23] MEDS: MULTIVITAMINS,THERAGRAN 1 UDTAB TABLET GT SCH (08:20)
[2017-09-23] MEDS: PROSOURCE / PROSTAT (PYXIS) 30 ML UDC GT SCH (08:21)
[2017-09-23] MEDS: DAKINS HALF STRENGTH (0.25%) 480 ML BOTTLE TOP SCH (08:22)
[2017-09-23] MEDS: NYSTATIN TOP POWDER 15 GM BOTTLE TP SCH (08:22)
[2017-09-23] MEDS: Z GUARD REMEDY 2 OZ OINT TP SCH (08:23)
--- NOTE | 2017-09-23 12:15 | NUR ---
PATIENT DISCHARGE ORDER PATIENT IS AXIOX1 WITH PERIODS OF CONFUSING.NO SOB NO DISTRESS NOTED DURING THE DISCHARGE.TOOK ALL THE BELONGING BY THE RELAY MAN,EXPLAINED DISCHARGE INSTRUCTIONS AND MEDICATION LIST TO RELAY MAN LISA.BROTHREED MORAES MADE AWARE ABOUT THE DISCHARGE.INITIALLY PATIENT WAS PLANNED TO D/C WITH O2.OXYGEN SATURATION CHECKED ON ROOM AIR SATURATING 97-98% ON ROOM AIR.PATIENT DISCHARGED HOME.NO NEED FOR OXYGEN THERAPY.LEFT WITH PRIVATE TRANSPORTATION.DISCHARGE ORDERS GIVEN BY .PATIENT LEFT WITH STABLE CONDITION.
== END 2017-09-23 12:40 | disposition home health service (06) | DRG 853 ==
LOC: ER 11:39 → TELE 18:16 → ICU 19:40 → TELE-TD 09-17 18:06 → MEDSG1 09-19 11:57
PROVIDERS: ADMIT Registered Nurse; ATTEND Registered Nurse
PROC: 0KBP0ZZ Excision of Left Hip Muscle, Open Approach (ICD-10-PCS; principal; 2017-09-16)
PROC: 0KBN0ZZ Excision of Right Hip Muscle, Open Approach (ICD-10-PCS; 2017-09-16)
PROC: 02HV33Z Insertion of Infusion Device into Superior Vena Cava, Percutaneous Approach (ICD-10-PCS; 2017-09-16)
PROC: B548ZZA Ultrasonography of Superior Vena Cava, Guidance (ICD-10-PCS; 2017-09-16)
DX: A41.9 Sepsis, unspecified organism (principal); J96.01 Acute respiratory failure with hypoxia; N17.0 Acute kidney failure with tubular necrosis; J69.0 Pneumonitis due to inhalation of food and vomit; G82.50 Quadriplegia, unspecified; L89.154 Pressure ulcer of sacral region, stage 4; E44.0 Moderate protein-calorie malnutrition; G93.41 Metabolic encephalopathy; N39.0 Urinary tract infection, site not specified; E87.1 Hypo-osmolality and hyponatremia; L97.319 Non-pressure chronic ulcer of right ankle with unspecified severity; Z86.73 Personal history of transient ischemic attack (TIA), and cerebral infarction without residual deficits; I11.0 Hypertensive heart disease with heart failure; I50.9 Heart failure, unspecified; R13.10 Dysphagia, unspecified; Z93.1 Gastrostomy status; Z79.84 Long term (current) use of oral hypoglycemic drugs; Z79.4 Long term (current) use of insulin; Z79.899 Other long term (current) drug therapy; D63.8 Anemia in other chronic diseases classified elsewhere; E86.0 Dehydration; E11.622 Type 2 diabetes mellitus with other skin ulcer; Z98.1 Arthrodesis status; Z87.01 Personal history of pneumonia (recurrent); Z86.718 Personal history of other venous thrombosis and embolism; F41.9 Anxiety disorder, unspecified; N31.9 Neuromuscular dysfunction of bladder, unspecified; F32.9 Major depressive disorder, single episode, unspecified; L98.9 Disorder of the skin and subcutaneous tissue, unspecified; L30.4 Erythema intertrigo; L89.891 Pressure ulcer of other site, stage 1; L89.509 Pressure ulcer of unspecified ankle, unspecified stage; L89.621 Pressure ulcer of left heel, stage 1; L89.611 Pressure ulcer of right heel, stage 1; S90.415A Abrasion, left lesser toe(s), initial encounter; S90.414A Abrasion, right lesser toe(s), initial encounter; X58.XXXA Exposure to other specified factors, initial encounter; Y92.9 Unspecified place or not applicable; B37.9 Candidiasis, unspecified; B96.89 Other specified bacterial agents as the cause of diseases classified elsewhere
CPT/HCPCS: 31720; 36415; 36569; 36600; 70450-TC; 71045-TC; 80048-TC; 80076-TC; 80202-TC; 80305; 81000-TC; 82962-TC; 83605-TC; 83735-TC; 83880; 84100-TC; 84484-TC; 85025-TC; 85378-TC; 85730-TC; 87040-TC; 87070-TC; 87081-TC; 87086-TC; 87186-TC; 93970-TC; 94640-TC; 94668-TC; 94762-TC; 94799-TC; A4216; A6253; A6402; A6403; C1751; C9113; J0692; J0696; J1650; J1815; J1940; J1956; J2270; J3260; J3370; J3490; J7030; J7060